=== PATIENT | female | born 1930 | race Caucasian/White ===

== ENCOUNTER 2017-12-08 11:52 | Inpatient (IN) | payer MEDICARE, BC ==
[2017-12-08] MEDS ORDERED: NS 0.9% 1000 ML* 1,000 ML IV ONE ×2 (12:22→15:32)
[2017-12-08 12:47] LABS: Hematocrit 38 % (35-47); Hemoglobin 12.6 g/dl (12.0-16.0); Mean Corpuscular HGB Conc 33 g/dl (31-36); Mean Corpuscular Hemoglobin 29 pg (27-31); Mean Corpuscular Volume 88 fL (80-97); Mean Platelet Volume 9.2 um3 (7.4-10.4); Platelet Count 225 10^3/ul (150-450); Red Blood Count 4.29 10^6/ul (4.0-5.4); Red Cell Distribution Width 14 % (10.5-15); White Blood Count 21.7 10^3/ul (3.5-10.8)
[2017-12-08 13:08] LABS: INR 1.13 (0.77-1.02)
[2017-12-08 13:26] LABS: ABS Basophils 0.1 10^3/ul (0-0.2); ABS Eosinophils 0 10^3/ul (0-0.6); ABS Monocytes 1.2 10^3/ul (0-0.8); ABS Neutrophils 19.3 10^3/ul (1.5-7.7); ABS Nucleated RBC 0 10^3/ul; Eosinophil % 0 % (0-6); Lymphocyte % 4.8 % (25-47); Nucleated Red Blood Cells % 0
--- NOTE | 2017-12-08 13:32 | RAD ---
Indication: Confusion. Single frontal view of the chest performed at 1314 hours was reviewed. No prior study is available for comparison. No mediastinal shift is noted. Heart is of normal size and configuration. Lung jon appear clear. IMPRESSION: NO ACTIVE CARDIOPULMONARY DISEASE IS NOTED.
--- NOTE | 2017-12-08 13:33 | RAD ---
Indication: Altered mental status. 2 views of the thoracic spine demonstrates osteopenia. There appears to be compression of approximately L1 vertebra. Osteopenia is noted. IMPRESSION: There appears to be, compression fracture of the L1 vertebra age of which is undetermined. Multilevel degenerative disc disease with diffuse osteopenia.
[2017-12-08] MEDS: Aspirin 81 mg CHEW TAB* 81 MG TAB.CHEW PO ONE ×2 (13:48→15:20)
[2017-12-08] MEDS ORDERED: Aspirin SUPP* 300 MG PR ONE (13:48)
[2017-12-08 14:02] LABS: Urine Appearance Turbid; Urine Blood 2+ (Negative); Urine Color Amber; Urine Ketones 1+ (Negative); Urine Protein 2+(100 mg/dL) (Negative); Urine Specific Gravity 1.015 (1.010-1.030); Urine Urobilinogen Negative (Negative)
--- NOTE | 2017-12-08 14:07 | RAD ---
INDICATION: Altered mental status COMPARISON: None TECHNIQUE: Noncontrast axial source images were acquired from the skull base to the vertex. FINDINGS: Ventricles/sulci: There is age-related cortical atrophy with compensatory dilatation of the CSF spaces. Brain parenchyma: There is mild decreased attenuation in the periventricular white matter consistent with mild chronic microvascular ischemic change. There are no additional significant focal probable findings. Incidental note is made of bilateral basal ganglia calcifications. Intracranial hemorrhage:None. Extra-axial spaces: There are no abnormal extra axial fluid collections or evidence of extra-axial mass. Calvarium: There is no calvarial fracture or other calvarial abnormality. Scalp: There is no evidence of scalp or extracalvarial soft tissue abnormality. Paranasal sinuses/mastoid: There is mild focal mucosal thickening involving the right maxillary antrum The paranasal sinuses and mastoid air cells are otherwise clear. Other: None. IMPRESSION: No acute intracranial findings
--- NOTE | 2017-12-08 14:13 | RAD ---
INDICATION: Altered mental status. Fall. COMPARISON: None TECHNIQUE: Noncontrast axial source images was performed from the skull base to the thoracic inlet. Coronal and and sagittal reformatted images were generated. FINDINGS: Vertebrae: There is no fracture or acute focal bony lesion. There are advanced osteoarthritic findings with anterior vertebral spurring, uncinate process hypertrophy, and facet arthropathy from C3 through C7. There is moderate, multilevel bilateral foraminal encroachment. There is posterior spondylitic ridge formation leading to a decrease in the AP diameter canal most severe at C5-C6. Alignment: The craniocervical junction appears normal. The cervical vertebrae are normally aligned. Central Canal: Multilevel foraminal stenosis. Decrease in the AP diameter canal C5-C6. MR imaging is a more sensitive method to evaluate the canal and foramina. Intervertebral disc spaces: Advanced multilevel degenerative narrowing. Brain: The visualized brain appears unremarkable. Soft tissues: The visualized soft tissue elements of the neck are remarkable for an enlarged right thyroid lobe with several low-density foci. The prevertebral soft tissues appear normal. The lung apices are clear. IMPRESSION: ADVANCED OSTEOARTHRITIC FINDINGS DESCRIBED. NO ACUTE CERVICAL SPINE. RIGHT THYROID NODULES. FINDINGS.
[2017-12-08] MEDS ORDERED: cefTRIAXone(*) 1 GM in NS 0.9% 50 ML* 50 ML IVPB ONE (14:56)
[2017-12-08] MEDS ORDERED: Diltiazem CD CAP* 180 MG PO ONE (15:33)
[2017-12-08] MEDS ORDERED: Metoprolol Tartrate IV* 1 MG/ML 5 ML VIAL IV PRN (15:34)
[2017-12-08] MEDS ORDERED: Acetaminophen TAB* 325 MG PO PRN (15:35)
[2017-12-08] MEDS ORDERED: Hydrocortisone 1% CREAM* 30 GM TUBE TOPICAL PRN (15:35)
[2017-12-08] MEDS ORDERED: Diltiazem IV* 5 MG/ML 5 ML VIAL (for loading dose/IV Push) (25 MG) IV SLOW PU ONE (15:45)
[2017-12-08] MEDS ORDERED: Dextrose 50% Syringe 50 ML* 25 GM/50 ML SYRINGE IV PUSH PRN (16:33)
[2017-12-08] MEDS: Pantoprazole IV* 40 MG IV SCH (17:32)
[2017-12-08] MEDS: NS 0.9% 1000 ML* 1,000 ML IV SCH (17:51)
[2017-12-08] MEDS: Insulin LISPRO* 1 UNITS UNIT SUBCUT SCH (20:26)
[2017-12-08] MEDS: Fluticasone NASAL SPRAY 50MCG* 16 gm SPRAY BTL BOTH NARES SCH (20:27)
--- NOTE | 2017-12-08 23:23 | HP ---
CC: Dr. Saavedra * HISTORY AND PHYSICAL: DATE OF ADMISSION: 12/08/17 PRIMARY CARE PROVIDER: Dr. Saavedra. CHIEF COMPLAINT: Not talking, altered mental status, found down. HISTORY OF PRESENT ILLNESS: Bess Briceno is an 87-year-old female who is wheelchair bound lady with a history of mild dementia who lives in independent apartment. She has Meals on Wheels on a daily basis and last she was seen well when she went out with her aide 2 days ago. At baseline, she is wheelchair bound, but she is able to stand up and transfer by herself. She arrived to [facility] in May 2017 to be closer with her daughter. Over the period of 2016, she fractured her hip, was postoperatively delirious and encephalopathic. She was transferred to short-term rehabilitation place and from there to assisted living. Gradually, her mentation improved to the point that her daughter decided to [facility] to be closer to her place in [place]. The patient moved to [place] in May 2017 and since then she has been in her wheelchair in her apartment. Her aide takes her out a couple times a week. She also receives Meals on Wheels. Today in the morning, she was found by her aide in her apartment on the floor, covered in dry stool. There were knitting supplies all over the floor and also clothing all over the floor. The patient was covered in bruises and nonverbal, but alert. The patient's daughter stated that the apartment looked like "a raccoon got into it." The patient became verbal after rehydration in the ED, but she does not make sense. She does not appear to understand commands. She can swallow water, but she has difficulty to do so. She appears not to know what to do with the cup. Her speech is clear. Her lab work shows rhabdomyolysis, severe sepsis likely due to UTI, elevated troponin. She also is in atrial fibrillation with rapid ventricular response. PAST MEDICAL HISTORY: Obtained from the daughter includes: 1. History of appendectomy in remote past. 2. Hypertension. 3. Status post right hip surgery in 2017. Postoperatively, the patient had been wheelchair bound. Postoperatively, she also developed encephalopathy. 4. History of mild dementia. 5. Diabetes. 6. History of atrial fibrillation, on anticoagulation ever since her hip surgery. 7. History of vein stripping. 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 9. 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 MEDICATIONS: The patient's medications that I believe she likely did not take for the past 2 days include: 1. Diltiazem CD 180 mg daily. 2. Flonase nasal spray, 1 spray both nostrils b.i.d. 3. Aspirin 325 mg daily. 4. Acetaminophen on a p.r.n. basis. 5. Preparation H on a p.r.n. basis. 6. Pravachol 20 mg every other day. 7. Insulin Lantus 27 units daily. 8. Lisinopril 20 mg daily. 9. Metformin 1000 mg b.i.d. ALLERGIES: HEPARIN causes HIT. FAMILY HISTORY: Positive for diabetes in mother as well as pancreatic cancer in mother who in her 80s. The patient's father had a history of liver malignancy. SOCIAL HISTORY: The patient is currently single. She lives independently as mentioned above. Her daughter is her healthcare proxy, her name is Lara Jack. The patient has a history of smoking over 30 years ago. There is no alcohol or drug use as per the patient's daughter. REVIEW OF SYSTEMS: Unobtainable from the patient. PHYSICAL EXAMINATION GENERAL: The patient is an 87-year-old female who is lying in bed. The patient appears in no acute distress. She is alert. She is very disoriented. Her speech is clear, but does not make any sense. She is not able to follow commands even when shown. VITAL SIGNS: Blood pressure 110/87, heart rate of 141 and irregular, respiratory rate 22, oxygen saturation 97% on room air, temperature 99.0. HEENT: Head: Atraumatic, normocephalic. Eyes: Pupils are equal and reactive to light and accommodation. Oropharynx clear. Very dry mucous membranes. NECK: Supple. No JVD. No bruits bilaterally RESPIRATORY: Clear to auscultation bilaterally. CARDIOVASCULAR: Irregularly irregular rhythm. No murmur. ABDOMEN: Soft, nontender. Bowel sounds are present in all 4 quadrants. EXTREMITIES: There is no edema. Pulses +2 bilaterally. No clubbing or cyanosis. NEURO EVALUATION: Speech is clear, but the patient's speaks "word salad." She is not able to follow commands even when shown. She appears to have equal strength in bilateral upper and lower extremities. There is no evidence of cranial nerve palsy. PSYCHIATRIC: On psychiatric evaluation, the patient speaks word salad. She is very disoriented. SKIN: On evaluation of the skin, the patient has multiple bruises and scratches in bilateral lower extremities. She has a rather larger contusion like appearing bruise on her right scapular region. She has stage II decubitus overlying her most of sacral area of approximately 20 x 20 cm. The area is nonblanchable. The center of the area approximately 2 x 2 cm is stage III decubitus. There is no evidence of infection. The patient has a Cummings in place with purulent urine draining. On evaluation of the patient's extremities, the patient has 1st and 2nd toe status post amputation with wound healed well. She has venous stasis discoloration to bilateral lower extremities and flaky dry skin due to venous stasis dermatitis. LABORATORY DATA: Showed white blood cell count of 21.7, hemoglobin of 12.6, hematocrit of 38, and platelets 225. INR 1.13. VBG shows pH of 7.35, pCO2 of 45, pO2 of 14, bicarb of 22. Sodium of 139, potassium of 4.1, chloride 106, carbon dioxide 22, BUN 27, creatinine 0.8. Liver function tests were unremarkable apart from total CPK level of 1424. Ammonia was 48. The patient's troponin was 0.39. Lactic acid 1.5. Urine positive for ketones, blood, esterase, negative for nitrites, absent bacteria, +3 white blood cells. IMAGING: Thoracic spine x-ray showed, "there appears to be compression fracture of the L1 vertebra, age undetermined. Multilevel degenerative disk disease with diffuse osteopenia." Cervical spine CT, impression: "Advanced osteoarthritic findings as described. No acute cervical spine. Right thyroid nodules." Brain CT, impression: "No acute intracranial findings." Portable chest x-ray, impression: "No acute cardiopulmonary disease is noted." The patient's EKG showed atrial fibrillation with a heart rate of 139 beats per minute with nonspecific ST changes in lateral leads. ASSESSMENT AND PLAN: 1. The patient's altered mental status is likely multifactorial. A differential can include cardioembolic stroke. The patient is in atrial fibrillation chronically and she had not been anticoagulated. The patient's daughter stated that the anticoagulation was stopped when the patient was started to take more Coumadin than prescribed prior to her hip surgery a year ago. Another diagnosis of differential is likely encephalopathy due to severe sepsis. The patient appears to be septic due to urinary tract infection. At this point, the patient is going to be placed on neuro checks and treated further. 2. In regards to the patient's severe sepsis due to urinary tract infection, ceftriaxone is going to be started. We will follow urine cultures. The patient was started with fluid boluses and will be continued on intravenous fluids. 3. For the patient's atrial fibrillation with rapid ventricular response, she is already slowly responding to fluids. We will also give the patient p.o. dose of Cardizem CD that she had been taking at home and the patient was also bolused with a dose of Cardizem in the ED. In addition to that, she is going to be placed on metoprolol on a p.r.n. basis IV. At this point, I do not believe that she needs to be placed on Cardizem drip. 4. The patient's rhabdomyolysis is rather severe. She is going to be continued on intravenous fluids. CPKs are going to be checked in the morning. 5. Her troponin elevation is likely due to demand ischemia. Nevertheless, we will follow up troponins. An echocardiogram may need to be obtained in a couple of days when it is available on Tuesday. 6. The patient has a history of heparin-induced thrombocytopenia and she is going to be placed on fondaparinux for her DVT prophylaxis. 7. The patient's code status is DNR and her daughter, Lara signed appropriate MOLST paperwork. TIME SPENT: Approximately 75 minutes was spent on admission of this patient, more than half of the time was spent [id number] with the patient and the patient's daughter doing the interview, physical exam. [id number]/[facility] #: [id number] ASHA
[2017-12-09] MEDS: NS 0.9% 1000 ML* 1,000 ML IV SCH (01:31)
[2017-12-09 05:40] LABS: ABS Basophils 0 10^3/ul (0-0.2); ABS Eosinophils 0 10^3/ul (0-0.6); ABS Lymphocytes 1.2 10^3/ul (1.0-4.8); ABS Monocytes 0.7 10^3/ul (0-0.8); ABS Neutrophils 16.1 10^3/ul (1.5-7.7); ABS Nucleated RBC 0 10^3/ul; Eosinophil % 0 % (0-6); Hematocrit 34 % (35-47); Hemoglobin 11.2 g/dl (12.0-16.0); Lymphocyte % 6.9 % (25-47); Mean Corpuscular HGB Conc 33 g/dl (31-36); Mean Corpuscular Hemoglobin 29 pg (27-31); Mean Corpuscular Volume 88 fL (80-97); Mean Platelet Volume 9.3 um3 (7.4-10.4); Nucleated Red Blood Cells % 0; Platelet Count 189 10^3/ul (150-450); Red Blood Count 3.85 10^6/ul (4.0-5.4); Red Cell Distribution Width 14 % (10.5-15); White Blood Count 18.1 10^3/ul (3.5-10.8)
[2017-12-09 05:55] LABS: EGFR Non-African American 100.6 (>60)
--- NOTE | 2017-12-09 07:40 | ED ---
Leanna Goodwin Gabriel, scribed for Niles Madrigal MD on 12/08/17 at 1221 . Altered Mental Status - HPI Summary HPI Summary: This patient is a 87 year old F BIBA to [facility] accompanied by her daughter after she was found on the floor in her apartment in a state of confusion. Pt lives alone and does not usually leave her apartment. No hx dementia or confusion. Pt is NIDDM. Has had multiple UTIs. Patient denies vomiting. The patient was found making small balls with her feces at her apartment. LEVEL 5 CAVEAT: HPI limited due to the patients confusion - History Of Current Complaint Chief Complaint: EDAltMentalStatus Stated Complaint: FALL/ALTERED MENTAL Time Seen by Provider: 12/08/17 12:06 Hx Obtained From: Patient, Family/Vegetable Inspector Onset/Duration: Still Present Timing: Constant Severity Initially: Severe Severity Currently: Severe Character: Confusion Associated Signs And Symptoms: Positive: Negative - vomiting - Allergies/Home Medications Allergies/Adverse Reactions: Allergies Allergy/AdvReac Type Severity Reaction Status Date / Time heparin Allergy Severe See Comment Verified 12/08/17 13:47 Home Medications: Home Medications Acetaminophen TAB* [Tylenol TAB*] 650 mg PO Q4H PRN 12/08/17 [History Confirmed 12/08/17] Aspirin TAB* [Aspirin 325 MG TAB*] 325 mg PO DAILY 12/08/17 [History Confirmed 12/08/17] Fluticasone NASAL SPRAY 50MCG* [Flonase NASAL SPRAY 50MCG*] 1 spray BOTH NARES BID 12/08/17 [History Confirmed 12/08/17] Hydrocortisone [Preparation H Hydrocortis] 1 % TOPICAL DAILY PRN 12/08/17 [ History Confirmed 12/08/17] Insulin GLARGINE(*) [Lantus(*)] 27 units SUBCUT DAILY 12/08/17 [History Confirmed 12/08/17] Lisinopril TAB* [Prinivil TAB*] 20 mg PO DAILY 12/08/17 [History Confirmed 12/08] Pravastatin (NF) [Pravachol (NF)] 20 mg PO EVERY OTHER DAY 12/08/17 [History Confirmed 12/08/17] dilTIAZem HCl [Diltiazem 24Hr ER] 180 mg PO DAILY 12/08/17 [History Confirmed ] metFORMIN* [Glucophage 500 MG TAB *] 1,000 mg PO BID 12/08/17 [History Confirmed 12/08/17] PMH/Surg Hx/FS Hx/Imm Hx Endocrine/Hematology History: Reports: Hx Diabetes Cardiovascular History: Denies: Hx Auto Implanted Cardiovert Defib Respiratory History: Denies: Hx Chronic Obstructive Pulmonary Disease (COPD) Infectious Disease History: Unable to Obtain/Confirm Infectious Disease History: Denies: Traveled Outside the [place] in Last 30 Days - Social History Lives: Alone - Additional Comments History Additional Comments: LEVEL 5 CAVEAT: history limited due to the patients confusion Review of Systems - ROS Summary Review of Systems Summary: LEVEL 5 CAVEAT: ROS limited due to the patients confusion Psychological: Other - AMS All Other Systems Reviewed And Are Negative: No Physical Exam - Summary Physical Exam Summary: Constitutional: Alert. (-) Distressed, moderately ill appearing Skin: sacral decubitus ulcer, abrasions of bilateral scapula HENT: extremely dry mucous membranes Eyes: Conjunctiva normal Neck: Musculoskeletal ROM normal neck. (-) JVD, (-) Stridor, (-) Tracheal deviation Cardio: Rhythm regular, rate normal, Heart sounds normal; Intact distal pulses; The pedal pulses are 2+ and symmetric. Radial pulses are 2+ and symmetric. (-) Murmur Pulmonary/Chest wall: Effort normal. (-) Respiratory distress, (-) Wheezes, (-) Rales Abd: Soft, (-) Tenderness, (-) Distension, (-) Guarding, (-) Rebound Musculoskeletal: (-) Edema Lymph: (-) Cervical adenopathy Neuro: Alert, Psych: confused Triage Information Reviewed: Yes Vital Signs On Initial Exam: Initial Vitals Temp Pulse Resp BP Pulse Ox 99.4 F 147 18 150/94 96 12/08/17 11:53 12/08/17 11:53 12/08/17 11:53 12/08/17 11:53 12/08/17 11:53 Vital Signs Reviewed: Yes Diagnostics - Vital Signs Vital Signs Temp Pulse Resp BP Pulse Ox 12/08/17 11:53 99.4 F 147 18 150/94 96 - Laboratory Result Diagrams: 12/08/17 12:33 12/08/17 12:35 Lab Statement: Any lab studies that have been ordered have been reviewed, and results considered in the medical decision making process. - EKG 1256 Cardiac Rate: Tachycardia EKG Rhythm: Atrial Fibrillation - at 139 EKG Interpretation: afib with RVR, no STEMI - Additional Comments Diagnostic Additional Comments: CT brain reveals, per radiologist, No acute intracranial findings ED physician has reviewed this radiology report. CT C-spine reveals, per radiologist, ADVANCED OSTEOARTHRITIC FINDINGS DESCRIBED. NO ACUTE CERVICAL SPINE. RIGHT THYROID NODULES. FINDINGS. ED physician has reviewed this radiology report. CXR reveals, per radiologist, NO ACTIVE CARDIOPULMONARY DISEASE IS NOTED. ED physician has reviewed this radiology report. T- spine XR reveals, per radiologist, There appears to be, compression fracture of the L1 vertebra age of which is undetermined. Multilevel degenerative disc disease with diffuse osteopenia. ED physician has reviewed this radiology report. Re-Evaluation - Re-Evaluation First Eval Re-Evaluation Time: 13:08 Comment: The pts hr is 146 and irregular. Second Eval Re-Evaluation Time: 15:32 Change: Unchanged Comment: Pt's hr is 140 with afib despite fluids Altered Mental Statu Course/Dx - Course Assessment/Plan: This patient is a 87 year old F BIBA to [facility] accompanied by her daughter after she was found on the floor in her apartment in a state of confusion. Pt lives alone and does not usually leave her apartment. No hx dementia or confusion. Pt is NIDDM. Has had multiple UTIs. Patient denies vomiting. The patient was found making small balls with her feces at her apartment. LEVEL 5 CAVEAT: exam limited due to the patients confusion. CT brain reveals, per radiologist, No acute intracranial findings. ED physician has reviewed this radiology report. CT C-spine reveals, per radiologist, ADVANCED OSTEOARTHRITIC FINDINGS DESCRIBED. NO ACUTE CERVICAL SPINE. RIGHT. THYROID NODULES. FINDINGS. ED physician has reviewed this radiology report. CXR reveals, per radiologist, NO ACTIVE CARDIOPULMONARY DISEASE IS NOTED. ED physician has reviewed this radiology report. T- spine XR reveals, per radiologist, There appears to be, compression fracture of the L1 vertebra age of which is. undetermined. Multilevel degenerative disc disease with diffuse osteopenia. ED physician has reviewed this radiology report. Test results with no significant abnormalities except forWBC of 21.7, glucose of 296, trop of .39, creatine kinase of 1424. UA was positive for UTI. The patient will be admitted to Dr. Augustine - Diagnoses Provider Diagnoses: Sepsis, UTI (urinary tract infection), Delirium, Atrial fibrillation with RVR - Provider Notifications Discussed Care Of Patient With: Fabio Augustine Time Discussed With Above Provider: 15:30 Instructed by Provider To: Admit As Inpatient - Critical Care Time Critical Care Time: 30-74 min Discharge - Sign-Out/Discharge Documenting (check all that apply): Discharge/Admit/Transfer - Discharge Plan Condition: Fair Disposition: ADMITTED TO [facility] The documentation as recorded by the Leanna beckman Gabriel accurately reflects the service I personally performed and the decisions made by me, Niles Madrigal MD.
[2017-12-09] MEDS: Insulin LISPRO* 1 UNITS UNIT SUBCUT SCH ×4 (10:00→21:10)
--- NOTE | 2017-12-09 10:15 | PN ---
Subjective Date of Service: 12/09/17 Interval History: pt continues to be very confused, alert, but appears to have sensory aphasia. Unable to follow commands at all even when shown what to do. Objective Active Medications: Acetaminophen (Tylenol Tab*) 650 mg PO Q4H PRN PRN Reason: PAIN Aspirin (Aspirin Tab*) 325 mg PO DAILY [facility] Dextrose (D50w Syringe 50 Ml*) 12.5 gm IV PUSH .FOR FS < 60 - SS PRN PRN Reason: FS < 60 Diltiazem HCl (Cardizem Cd Cap*) 180 mg PO DAILY [facility] Fluticasone Propionate (Flonase Nasal [place] 50mcg*) 1 spray BOTH NARES BID [facility] Last Admin: 12/08/17 20:27 Dose: 1 spray Fondaparinux (Arixtra*) 2.5 mg SUBCUT DAILY [facility] Hydrocortisone (Hytone Cream 1%*) 1 applic TOPICAL DAILY PRN PRN Reason: PAIN Ceftriaxone Sodium 1 gm/ (Sodium Chloride) 50 mls @ 200 mls/hr IVPB Q24H [facility] Lactated Ringer's (Lactated Ringers 1000 Ml Bag*) 1,000 mls @ 100 mls/hr IV ONCE ONE Stop: 12/09/17 17:55 Insulin Glargine (Lantus(*)) 27 units SUBCUT DAILY [facility] Insulin Human Lispro (Humalog*) 0 units SUBCUT ACHS THIERNO PRN Reason: Protocol Last Admin: 12/09/17 10:00 Dose: Not Given Metoprolol Tartrate (Lopressor Iv*) 5 mg IV Q6H PRN PRN Reason: BLOOD PRESSURE Vital Signs - 8 hr 12/09/17 12/09/17 12/09/17 04:15 07:33 08:00 Temperature 99.6 F 98.5 F Pulse Rate 147 138 Respiratory 16 16 16 Rate Blood Pressure 116/56 136/67 (mmHg) O2 Sat by Pulse 96 98 Oximetry Oxygen Devices in Use Now: None Appearance: 87 yo F in nAD, disoriented, speaks word salad Eyes: No Scleral Icterus, PERRLA Ears/Nose/Mouth/Throat: NL Teeth, Lips, Gums, Mucous Membranes Moist Neck: NL Appearance and Movements; NL JVP, Trachea Midline Respiratory: Symmetrical Chest Expansion and Respiratory Effort, - - crackles at RLL Cardiovascular: No Edema, - - irregular, tachy 3/6 BERT Abdominal: NL Sounds; No Tenderness; No Distention Lymphatic: No Cervical Adenopathy Extremities: No Edema, No Clubbing, Cyanosis, - - s/p L 1st and 2nd toe amputation Skin: - - sacral decub stage 2 at 20 cm in diam with central wound of 2-3 cm in diam -stage 3. Venous stasis dermatitis b/l distal LE's, excoriations throughout b/l upper and lower extremities, contusion on r scapula Neurological: NL Muscle Strength and Tone, - - sensory aphasia noted, speech clear Result Diagrams: 12/09/17 05:15 12/09/17 05:15 Assess/Plan/Problems-Billing Assessment: 87 yo f with h/o DM2, a. fib (not on anticoagulation due to dementia and risk of pt taking wrong dose of med-as per pt's daughter), s/p R hip fx in 2017(since then WC bound, but able to transfer), dementia and delirium post op in 2017 was brought in found on the floor of her apartment covered in stool ,and bruises. Last time seen at baseline was 2 days prior. - Patient Problems (1) Encephalopathy acute Comment: Multifactiorial: related to severe sepsis and possible CVA Improving. today pt is exhibiting sensory aphasia (2) Aphasia Comment: Pt does not appear to understand anything. suspect pt had cardioembolic CVA will ask Dr. Luther to see. Unfortunately due to the disorientation, pt would not be cooperative with MRI cont ASA PT/OT/speech therapy ongoing Neurochecks ordered (3) Rhabdomyolysis Comment: post fall, CPK improving, cont IVF (4) Atrial fibrillation with rapid ventricular response Comment: Known a. fib. Cont Cardizem CD and lopressor IV prn Daughter agrees to anticoagulation , since likely pt will require STR at d/c. Will await neuro evaluation and recommendations when to start anticoagulation (5) Troponin I above reference range Comment: suspect due to demand ischemia and rhabdo echo ordered (6) Severe sepsis Comment: due to UTI Blood and urine cx pending cont Ceftriaxone (7) HIT (heparin-induced thrombocytopenia) Comment: h/o in the past (8) Decubitus skin ulcer Comment: on sacrum, stage 2 and 3. wound care ordered. Air matress ordered (9) DM2 (diabetes mellitus, type 2) Comment: cont home Lantus and ISS (10) DVT prophylaxis Comment: Arixtra due to h/o HIT (11) DNR (do not resuscitate) Comment: DNR, MOLST signed Status and Disposition: Inpatient
[2017-12-09] MEDS: Fondaparinux* 2.5 MG/0.5 ML SYRINGE SUBCUT SCH (10:33)
[2017-12-09] MEDS: Diltiazem CD CAP* 180 MG PO SCH (10:35)
[2017-12-09] MEDS: Aspirin TAB* 325 MG PO SCH (10:35)
[2017-12-09] MEDS: Fluticasone NASAL SPRAY 50MCG* 16 gm SPRAY BTL BOTH NARES SCH ×2 (10:39→21:10)
[2017-12-09] MEDS: Pantoprazole IV* 40 MG IV SCH (10:48)
[2017-12-09] MEDS: Insulin GLARGINE(*) 1 UNITS UNIT SUBCUT SCH (10:59)
--- NOTE | 2017-12-09 15:02 | ECHO ---
Patient: CARLOS MARTINEZ [facility] Rec#: [id number] : 1930 Date: 12/09/2017 Age: 87y Height: 157.48 cm / 62.0 in Weight: 68.04 kg / 150.0 lbs Sex: F BSA: 1.69 Room#: [facility] Admit Date#: 12/08/2017 Type: Inpatient Referring: Joanie Machado MD Reading: Buddy Grullon MD Radio Disc Jockey: Gissell Hernandez RDCS CC: Juan Carlos Saavedra MD Transthoracic Echocardiogram Indication: A-Fib with RVR BP: 136/67 HR: 105 Rhythm: A-Fib Findings History: DM, HTN, a-fib, mild dementia, s/p vein stripping, former smoker, s/p right hip surgery in 2017. Technical Comments: The study quality is fair. Completed at 1455. Left Ventricle: The left ventricular chamber size is normal. Mild concentric left ventricular hypertrophy is observed. Mild global hypokinesis of the left ventricle is observed. There is mildly decreased left ventricular systolic function. The estimated ejection fraction is 45-50%. Pt is in a fib and difficult to make accurate overall LV EF evaluation. The assessment of diastolic function is non-diagnostic. The patient was unable to perform a Valsalva maneuver. Left Atrium: The left atrium is severely dilated. Right Ventricle: Moderator Band present. The right ventricle is mild to moderately dilated. The right ventricular global systolic function is mildly reduced. Right Atrium: The right atrial cavity size is severely dilated. A prominent eustachian valve is noted in the right atrium. A prominent chiari network is noted in the right atrium. Aortic Valve: The aortic valve is trileaflet. Mild aortic leaflet calcification is visualized. Systolic excursion of the aortic valve cusps is reduced. There is no evidence of aortic regurgitation. There is moderate aortic stenosis. The mean gradient of the aortic valve is 6.59 mmHg. The peak instantaneous gradient of the aortic valve is 12.29 mmHg. The aortic valve area, by peak velocities, is calculated at 1.1 cm2. The aortic valve area, by VTI's, is calculated at 1.1 cm2. Mitral Valve: There is mitral annular calcification. The mitral valve leaflets are moderately thickened. There is moderate mitral regurgitation. There is no evidence of mitral stenosis. Tricuspid Valve: The tricuspid valve leaflets are mildly thickened. There is mild to moderate tricuspid regurgitation. The right ventricular systolic pressure is estimated at 39 mmHg. There is evidence of mild pulmonary hypertension. There is no tricuspid stenosis. Pulmonic Valve: The pulmonic valve appears normal. There is mild pulmonic regurgitation. There is no pulmonic stenosis. Pericardium: There is no significant pericardial effusion. Aorta: There is no dilatation of the ascending aorta. The aortic arch is not well visualized. The aortic root is normal in size. Pulmonary Artery: The main pulmonary artery appears normal. Venous: The inferior vena cava is dilated. There is an approximate 50% respiratory change in the inferior vena cava dimension. Summary: There was not any prior study for comparison. Conclusions The left ventricular chamber size is normal. Mild concentric left ventricular hypertrophy is observed. The estimated ejection fraction is 45-50%. Pt is in a fib and difficult to make accurate overall LV EF evaluation. The left atrium is severely dilated. There is moderate aortic stenosis. There is moderate mitral regurgitation. There is mild to moderate tricuspid regurgitation. There is mild pulmonic regurgitation. Measurements Name Value Normal Range RVIDd (AP) 2D 3.3 cm (0.9 - 2.6) RVDdMajor (2D) 4.9 cm (2.2 - 4.4) RAd ISD 4CH 6.5 cm (3.4 - 4.9) RA (A4C)W 4.5 cm (2.9 - 4.6) IVSd (2D) 1.2 cm (0.6 - 1) LVPWd (2D) 1.2 cm (0.6 - 1) LVIDd (2D) 3.7 cm (3.6 - 5.4) LVIDs (2D) 3 cm - LV FS (2D) 19 % (25 - 45) Aortic Annulus 2.1 cm (1.4 - 2.6) Ao root diameter (2D) 2.9 cm (2.1 - 3.5) Ascending Ao 3.1 cm (2.1 - 3.4) LA dimension (AP) 2D 4.3 cm (2.3 - 3.8) LAd ISD 4CH 6.3 cm (2.9 - 5.3) LA ISD 4CH W 5.3 cm (2.5 - 4.5) Name Value Normal Range LA ESV SP 4CH (A/L) 109 ml - LA ESV SP 2CH (A/L) 90 ml - LA ESV BP (A/L) 102 ml - LA ESV BP (A/L) index 60 ml/m2 - LA ESV SP 4CH (MOD) 101 ml - LA ESV SP 2CH (MOD) 85 ml - Name Value Normal Range MV E-wave Vmax 1.19 m/sec - MV deceleration time 198.4 msec - LV septal e' Vmax 0.06 m/sec - LV lateral e' Vmax 0.06 m/sec - LV E:e' septal ratio 19.83 ratio - LV E:e' lateral ratio 19.83 ratio - Name Value Normal Range AV Vmax 1.74 m/sec - AV VTI 31.46 cm - AV peak gradient 12.29 mmHg - AV mean gradient 6.59 mmHg - LVOT diameter 2 cm - LVOT Vmax 0.63 m/sec - LVOT VTI 11.26 cm - LVOT peak gradient 1.59 mmHg - LVOT mean gradient 0.84 mmHg - DOI (VTI) 0.36 ratio - BRIAN (continuity Vmax) 1.1 cm2 - BRIAN (continuity VTI) 1.1 cm2 - MAN Vmax 0.48 m/sec - Name Value Normal Range MR Vmax 5.26 m/sec - MR VTI 130.3 cm - MR flow (PISA) 65.7 ml/sec - MR ERO 0.12 cm2 - MR PISA radius 0.4 cm - MR alias Vmax 57 cm/sec - Name Value Normal Range TR Vmax 2.8 m/sec - TR peak gradient 31 mmHg - RAP 8 mmHg - RVSP 39 mmHg - IVC diameter 2.3 cm - Name Value Normal Range PV Vmax 0.72 m/sec - PV peak gradient 2.13 mmHg -
[2017-12-09] MEDS: cefTRIAXone(*) 1 GM in NS 0.9% 50 ML* 50 ML IVPB SCH (15:30)
--- NOTE | 2017-12-09 21:10 | CONS ---
CC: Dr. Saavedra * NEUROLOGY CONSULTATION: DATE OF CONSULT: 12/09/17 LOCATION: She is an inpatient in room 449. REFERRING PROVIDER: Dr. Machado. CHIEF COMPLAINT: Confusion, found down. HISTORY OF PRESENT ILLNESS: Bess Briceno is an 87-year-old woman who was found by, I believe, her aide on the floor of her senior apartment on the day of admission. She had been seen 2 days prior to that. There was feces on her and the apartment was apparently in disarray. She is in a wheelchair because of her fractured hip. She was brought into the emergency room where she was uroseptic and dehydrated. She was unresponsive initially. She was in atrial fibrillation with a rapid response which she is known to have chronically. She was hydrated and starting to become more responsive. However, after recovery, she was speaking nonsensically and seemed very confused. I was asked to see her. PAST MEDICAL HISTORY: Apparently notable for dementia, but she is able to live in a senior apartment. She fell and fractured her hip last fall and had hip surgery. She was delirious postoperatively. She has chronic atrial fibrillation , but was not on anticoagulation apparently due to risk of falling. She has a history of heparin-induced thrombocytopenia, left toe gangrene requiring amputation, diabetes. MEDICATIONS: At home, consist of: 1. Diltiazem CD 180 mg p.o. q. day. 2. Aspirin 325 mg p.o. q. day. 3. Pravachol 20 mg p.o. q. day. 4. Lisinopril 20 mg p.o. q. day. 5. Metformin 1000 mg p.o. b.i.d. 6. Insulin. Current medications include: 1. Ceftriaxone 1 g IV q.24 hours and her inpatient medicines. 2. She is also getting Arixtra 2.5 mg subcu q. day. 3. She is on sliding scale insulin. ALLERGIES: She is allergic to HEPARIN because of heparin-induced thrombocytopenia. SOCIAL HISTORY: According to hospital record, she is an ex-smoker from decades ago, no alcohol use. REVIEW OF SYSTEMS: From the patient is pretty nonproductive which was explainable on her exam. I spoke with her daughter. She is apparently forgetful, but this current mental state is entirely different. PHYSICAL EXAM: She is reasonably well hydrated. Temperature 98.5 orally, blood pressure 136/67, heart rate was measured at 138 earlier but on my exam is closer to 80 to 90. Respiratory rate is 16 and oxygen saturation is 98% on room air. She has multiple ecchymoses on her limbs. Head is atraumatic. Heart is in irregularly irregular rhythm. I do not hear murmurs. Carotid pulses are present. There are no cervical bruits. Oral mucosa is moist and I do not see any oral trauma. Neurologically, pupils react equally from 3 to 2 mm. Eye movements are full. I cannot sort out her visual jon because of the language barrier. She does respond to threat bilaterally. Facial musculature is notable for mild flattening of the right nasolabial fold. Facial sensation to nasal tickle seems symmetric. Motor exam reveals some paratonia but good strength in the arms. She has good strength with ankle dorsiflexes, but I could not get her to raise her legs and I did not want to interfere with her hip injury. Reflexes are trace in the arms and knees, absent at the ankles. Her left plantar response is flexor and her right great toe is missing. She is awake and alert. She largely speaks in a word salad with non-words as well as exr-ph-dvyasod words. She does say a few sentences and says that "something has happened" and it has happened "suddenly." She talks about a man with possible mental illness. She has great difficulty following commands other than by pantomime. DIAGNOSTIC STUDIES/LAB DATA: Includes a CT scan of the brain from 12/08/17. Reveals atrophy, periventricular hypodensities, and bilateral basal ganglia calcifications. Other laboratory data notable for admitting urinalysis with 2+ protein, turbidity, pH 5.0, 1+ ketones, +2 blood, 3+ white blood cells and red blood cells, 2+ leukocyte esterase, yeasts are present, 3+ glucose. Chemistry profile notable for persistently elevated troponins which have come down somewhat; glucose when she came in was 279, was 307 earlier this morning. Creatine kinase was 1424 yesterday, down to 598 today. BUN was elevated yesterday at 27, down to 22 today. Lactic acid was normal yesterday. Ammonia level normal at 48 and liver enzymes normal as well. CBC notable for white blood cell count 21.7 yesterday, down to 18.1 today. Hemoglobin is down to 11.2 this morning from 12.6 yesterday. IMPRESSION AND PLAN: My impression is that she probably has a Wernicke's aphasia. These are typically cardio-embolic to posterior division of the dominant hemisphere, middle cerebral artery. Sometimes, these are accompanied by quadrant anopsia or hemisensory deficits, but her language barrier currently makes it hard to assess. She also has a premorbid history of cognitive impairment. Given her atrial fibrillation and the likelihood that she is not going to be living in a completely supervised setting, I had recommended that she be anticoagulated. I would wait about 3 days to 5 days after her admission, and repeat her brain CT without contrast. If there is no hemorrhagic transformation , then I would recommend anticoagulation with either warfarin or a novel anticoagulant. I have spoken with her daughter and I answered questions. I spoke with Dr. Machado with my recommendations as well. [id number]/[facility] #: [id number] ASHA
[2017-12-10 06:35] LABS: ABS Basophils 0 10^3/ul (0-0.2); ABS Eosinophils 0 10^3/ul (0-0.6); ABS Lymphocytes 1.6 10^3/ul (1.0-4.8); ABS Monocytes 0.6 10^3/ul (0-0.8); ABS Neutrophils 10.2 10^3/ul (1.5-7.7); ABS Nucleated RBC 0 10^3/ul; Eosinophil % 0.2 % (0-6); Hematocrit 34 % (35-47); Hemoglobin 11.3 g/dl (12.0-16.0); Lymphocyte % 12.9 % (25-47); Mean Corpuscular HGB Conc 34 g/dl (31-36); Mean Corpuscular Hemoglobin 29 pg (27-31); Mean Corpuscular Volume 87 fL (80-97); Mean Platelet Volume 9.1 um3 (7.4-10.4); Nucleated Red Blood Cells % 0; Platelet Count 200 10^3/ul (150-450); Red Blood Count 3.85 10^6/ul (4.0-5.4); Red Cell Distribution Width 15 % (10.5-15); White Blood Count 12.5 10^3/ul (3.5-10.8)
[2017-12-10] MEDS: Fluticasone NASAL SPRAY 50MCG* 16 gm SPRAY BTL BOTH NARES SCH ×2 (07:49→19:57)
[2017-12-10] MEDS: Aspirin TAB* 325 MG PO SCH (08:30)
[2017-12-10] MEDS: Diltiazem CD CAP* 180 MG PO SCH (08:30)
[2017-12-10] MEDS: Insulin LISPRO* 1 UNITS UNIT SUBCUT SCH ×4 (08:32→21:03)
[2017-12-10] MEDS: Fondaparinux* 2.5 MG/0.5 ML SYRINGE SUBCUT SCH (08:32)
[2017-12-10] MEDS: Insulin GLARGINE(*) 1 UNITS UNIT SUBCUT SCH (08:33)
[2017-12-10] MEDS ORDERED: Magnesium Sulfate 1 GM IV* 1 GM/100 ML BAG IV ONE (09:05)
[2017-12-10] MEDS ORDERED: Potassium Chlor TAB* 20 MEQ TAB.ER PO ONE (09:05)
[2017-12-10] MEDS: cefTRIAXone(*) 1 GM in NS 0.9% 50 ML* 50 ML IVPB SCH (16:05)
--- NOTE | 2017-12-10 16:33 | PN ---
Subjective Date of Service: 12/10/17 Interval History: Pt able to follow some commands, speak some sentences and read large print(with some mistakes). still overall confused. Unable to understand the question "are you in pain". Leukocytosis resolved. UCx no significant growth. Objective Active Medications: Acetaminophen (Tylenol Tab*) 650 mg PO Q4H PRN PRN Reason: PAIN Last Admin: 12/09/17 15:41 Dose: 650 mg Aspirin (Aspirin Tab*) 325 mg PO DAILY [facility] Last Admin: 12/10/17 08:30 Dose: 325 mg Dextrose (D50w Syringe 50 Ml*) 12.5 gm IV PUSH .FOR FS < 60 - SS PRN PRN Reason: FS < 60 Diltiazem HCl (Cardizem Cd Cap*) 180 mg PO DAILY [facility] [place] Last Admin: 12/10/17 08:30 Dose: 180 mg Fluticasone Propionate (Flonase Nasal Lacey 50mcg*) 1 spray BOTH NARES BID [facility] [place] Last Admin: 12/10/17 07:49 Dose: Not Given Fondaparinux (Arixtra*) 2.5 mg SUBCUT DAILY [facility] [place] Last Admin: 12/10/17 08:32 Dose: 2.5 mg Ceftriaxone Sodium 1 gm/ (Sodium Chloride) 50 mls @ 200 mls/hr IVPB Q24H [facility] [place] Last Admin: 12/10/17 16:05 Dose: 200 mls/hr Insulin Glargine (Lantus(*)) 27 units SUBCUT DAILY [facility] [place] Last Admin: 12/10/17 08:33 Dose: 27 units Insulin Human Lispro (Humalog*) 0 units SUBCUT ACHS [facility] PRN Reason: Protocol Last Admin: 12/10/17 13:16 Dose: Not Given Metoprolol Tartrate (Lopressor Iv*) 5 mg IV Q6H PRN PRN Reason: BLOOD PRESSURE Vital Signs - 8 hr 12/10/17 11:20 Temperature 98.7 F Pulse Rate 87 Respiratory 16 Rate Blood Pressure 123/57 (mmHg) O2 Sat by Pulse 99 Oximetry Oxygen Devices in Use Now: Nasal Cannula Appearance: NAD. sitting in bed looking at magazines. Eyes: No Scleral Icterus Respiratory: Symmetrical Chest Expansion and Respiratory Effort, Clear to Auscultation Cardiovascular: NL Sounds; No Murmurs; No JVD, - - irregularly irregular. 2/6 BERT with radiation to neck, loudest at LUSB. Extremities: No Edema, - - left leg with significant diameter increase compared to right. scars and faint erythema to calfs b/l Skin: No Rash or Ulcers Neurological: - - not oriented to name, place, year. able to talk/read, follow some commands. Some receptive aphasia. Nutrition: Taking PO's Result Diagrams: 12/10/17 06:12 12/10/17 06:12 Additional Lab and Data: Laboratory Results - last 24 hr 12/09/17 12/10/17 12/10/17 20:15 06:12 06:12 WBC 12.5 H RBC 3.85 L Hgb 11.3 L Hct 34 L MCV 87 MCH 29 MCHC 34 RDW 15 Plt Count 200 MPV 9.1 Neut % (Auto) 81.7 Lymph % (Auto) 12.9 L [place] % (Auto) 4.8 Eos % (Auto) 0.2 Baso % (Auto) 0.4 Absolute Neuts (auto) 10.2 H Absolute Lymphs (auto) 1.6 Absolute Monos (auto) 0.6 Absolute Eos (auto) 0 Absolute Basos (auto) 0 Absolute Nucleated RBC 0 Nucleated RBC % 0 Sodium 139 Potassium 3.5 Chloride 109 Carbon Dioxide 24 Anion Gap 6 BUN 19 Creatinine 0.50 L Est GFR ( Amer) 150.4 Est GFR (Non-Af Amer) 117.0 BUN/Creatinine Ratio 38.0 H Glucose 133 H POC Glucose (mg/dL) 206 H Calcium 8.1 L Total Creatine Kinase 173 Triglycerides 79 Cholesterol 112 LDL Cholesterol 64 HDL Cholesterol 32.3 12/10/17 12/10/17 12/10/17 07:24 13:06 16:08 WBC RBC Hgb Hct MCV MCH MCHC RDW Plt Count MPV Neut % (Auto) Lymph % (Auto) [place] % (Auto) Eos % (Auto) Baso % (Auto) Absolute Neuts (auto) Absolute Lymphs (auto) Absolute Monos (auto) Absolute Eos (auto) Absolute Basos (auto) Absolute Nucleated RBC Nucleated RBC % Sodium Potassium Chloride Carbon Dioxide Anion Gap BUN Creatinine Est GFR ( Amer) Est GFR (Non-Af Amer) BUN/Creatinine Ratio Glucose POC Glucose (mg/dL) 144 H 210 H 173 H Calcium Total Creatine Kinase Triglycerides Cholesterol LDL Cholesterol HDL Cholesterol Microbiology and Other Data: Microbiology 12/08/17 14:21 Blood Venous Aerobic Blood Culture - Preliminary No Growth Day 2 12/08/17 14:21 Blood Venous Anaerobic Blood Culture - Preliminary No Growth Day 2 12/08/17 14:23 Blood Venous Aerobic Blood Culture - Preliminary No Growth Day 2 12/08/17 14:23 Blood Venous Anaerobic Blood Culture - Preliminary No Growth Day 2 12/08/17 13:40 Urine Urine Culture - Final Assess/Plan/Problems-Billing Assessment: 87 yo female with PMH DM2, a. fib (not on anticoagulation due to dementia and risk of pt taking wrong dose of med-as per pt's daughter), s/p R hip fx in 2017( since then WC bound, but able to transfer), dementia and delirium post op in 2017 was brought in found on the floor of her apartment covered in stool ,and bruises. Last time seen at baseline was 2 days prior. Suspected CVA. - Patient Problems (1) Aphasia Current Visit: Yes Status: Acute Code(s): R47.01 - APHASIA SNOMED Code(s) : 96007640 Comment: Slightly improving. Pt able to follow some commands. But still very confused with receptive aphasia. suspect pt had cardioembolic CVA Appreciate Neurology recs from Dr. Luther and Dr. Dawkins. Dr. Dawkins would prefer holding anticoagulation until pt calm enough to get an MRI. Original plan per Dr. Luther was repeat CTH in 3-5days from admission. cont ASA PT/OT/speech therapy ongoing --- mechanical ground texture, thin liquids okay. Neurochecks (2) Atrial fibrillation with rapid ventricular response Current Visit: Yes Status: Acute Code(s): I48.91 - UNSPECIFIED ATRIAL FIBRILLATION SNOMED Code(s): 734818403575494 Comment: Known a. fib. Cont Cardizem CD and lopressor IV prn Daughter agrees to anticoagulation , since likely pt will require STR at d/c. timing as above (after MRI brain vs repeat CTH if unable to obtain). (3) DM2 (diabetes mellitus, type 2) Current Visit: Yes Status: Acute Comment: cont home Lantus 27U and SSI (4) DNR (do not resuscitate) Current Visit: Yes Status: Acute Comment: DNR, MOLST signed (5) DVT prophylaxis Current Visit: Yes Status: Acute Code(s): HKA0692 - SNOMED Code(s): 974052153 Comment: Arixtra due to h/o HIT (6) Decubitus skin ulcer Current Visit: Yes Status: Acute Code(s): L89.90 - PRESSURE ULCER OF UNSPECIFIED SITE, UNSPECIFIED STAGE SNOMED Code(s): 165769821 Comment: on sacrum, stage 2 and 3. wound care ordered. Air matress ordered (7) Encephalopathy acute Current Visit: Yes Status: Acute Code(s): G93.40 - ENCEPHALOPATHY, UNSPECIFIED SNOMED Code(s): 69333692 Comment: Multifactiorial: related to severe sepsis and possible CVA Improving but still with sensory aphasia (8) HIT (heparin-induced thrombocytopenia) Current Visit: Yes Status: Acute Code(s): D75.82 - HEPARIN INDUCED THROMBOCYTOPENIA (HIT) SNOMED Code(s): 18604802 Comment: h/o in the past (9) Rhabdomyolysis Current Visit: Yes Status: Acute Code(s): M62.82 - RHABDOMYOLYSIS SNOMED Code(s): 178848920 Comment: resolved. mild. post fall (10) Troponin I above reference range Current Visit: Yes Status: Acute Code(s): R74.8 - ABNORMAL LEVELS OF OTHER SERUM ENZYMES SNOMED Code(s): 025344531 Comment: suspect due to demand ischemia and rhabdo echo ordered (11) SIRS (systemic inflammatory response syndrome) Current Visit: Yes Status: Acute Code(s): R65.10 - SIRS OF NON-INFECTIOUS ORIGIN W/O ACUTE ORGAN DYSFUNCTION SNOMED Code(s): 931014098 Comment: leukocytosis (resolving on cftx), tachycardia(Afib RVR), tachypnia ( max of 27) encephalopathy(in setting of suspected CVA). BP preserved. UA 2+ LE, 3+ wbc, no bacteria. UCx w/o significant growth. no lactic acidosis. (12) Swelling of lower extremity Current Visit: Yes Status: Acute Code(s): M79.89 - OTHER SPECIFIED SOFT TISSUE DISORDERS SNOMED Code(s): 565350968 Comment: Right greater that left. Will get Duplex US to rule out DVT. Status and Disposition: Inpatient. Likely will need SNF
--- NOTE | 2017-12-10 22:33 | PN ---
PROGRESS NOTE: DATE OF SERVICE: 12/10/17 HISTORY OF PRESENT ILLNESS: Bess Briceno is an 87-year-old woman seen by Dr. Luther yesterday for neurologic consultation in the setting of being found down on 12/08/17. From the notes it appeared at baseline, she is in a wheelchair. She was admitted with a diagnosis of urosepsis and dehydration, albeit urinalysis did not grow out an organism. Her white count was quite high at 27.1 with 89.2% neutrophils with improvement since admission. She was noted to be in rapid AFib. She was not anticoagulated secondary to falls and she is on aspirin. She does have a history of heparin-induced thrombocytopenia. Rhabdomyolysis was noted. She was hydrated. Her urinalysis did not show growth. She was noted to have decubitus ulcers. Her troponin was noted to be elevated. Dr. Luther was consulted given her neurologic status, history of atrial fibrillation, and anticoagulation. He noted Wernicke's aphasia and suggested repeat CT in the near future and if negative for bleed, restarting anticoagulation for prevention of stroke in the setting of atrial fibrillation. Her CT scan showed periventricular small vessel ischemic disease. She has risk factors of hypertension, diabetes, atrial fibrillation. She is noted to have a baseline of dementia. PHYSICAL EXAMINATION: Most recent temperature is 98.7 degrees Fahrenheit, her pulse was 87 with irregularly irregular rhythm, respiratory rate was 16, her saturation was 99%, her blood pressure was 123/57. She had irregularly irregular rhythm. Her lungs were clear to auscultation. She had enlarged left calf compared to the right with distal redness and warmth of her legs and healing wounds on her left greater than right leg. Pulses were present in the feet. There was no cord palpated in the left leg. She was asleep when I first came in, but awoke easily, at times she had word salad, other times she was able to get out a sentence such as planning to go home with her daughter because has difficulty walking. She could not answer orientation questions. She had full extraocular movements and did count fingers in all jon. Her facial expression was symmetric. There was no dysarthria. She moved her arms symmetrically, but it was hard to get her to follow commands. She did have good classroom assistant bilaterally. She lifted both legs off the bed and she appeared to feel sensation in all limbs DIAGNOSTIC STUDIES/LAB DATA: Includes CBC with a white count that has improved at 12.5 with 10.2 absolute neutrophils. Her hemoglobin and hematocrit were 11.3 and 34 respectively and her platelet count was within normal limits. Her electrolytes today showed an elevated BUN-creatinine ratio at 38. Her glucose is elevated at 133 and her calcium is low at 8.1. She had an transthoracic echocardiogram, which showed ejection fraction of 45% to 50%; however, difficult to estimate in the setting of atrial fibrillation. There were multiple valvular changes with severe dilatation of the left atrium, and mild pulmonary hypertension. Please see report for details. CT of the brain was also reviewed directly, which showed periventricular small vessel ischemic disease. IMPRESSION AND PLAN: Bess Briceno is an 87-year-old woman with history of hypertension; diabetes; atrial fibrillation, off anticoagulation; dementia, who was admitted with elevated white count, rhabdomyolysis, changes in the urine suggesting urosepsis, dehydration, who has shown improvement with treatment with antibiotics, the sepsis is of unclear cause. Her neutrophils and white blood cell count are improving. She does have decubitus ulcers and of note on examination, there was left greater than right leg swelling with distal skin changes and warmth. This raises the question of cellulitis and deep venous thrombosis, and I will discuss this with hospitalist team, who are working her up. In regards to neurologic issues, she does have expressive aphasia and is noted at baseline to have dementia; her clinical baseline is unclear as I have not met her before. It is certainly possible, she has worsened in the setting of infection. Although anticoagulation is indicated to prevent strokes in the setting of atrial fibrillation, I would like to see an MRI of the brain if possible prior to starting anticoagulation to ensure safety. Hopefully, with this continued improvement, she will be able to have an MRI performed. TIME SPENT: Over 30 minutes was spent in patient care and review of chart, scans, notes, examination of the patient, and coordination of care. [id number]/[facility] #: [id number] ASHA
[2017-12-11] MEDS: Insulin LISPRO* 1 UNITS UNIT SUBCUT SCH ×4 (08:38→21:12)
[2017-12-11] MEDS: Aspirin TAB* 325 MG PO SCH (08:49)
[2017-12-11] MEDS: Diltiazem CD CAP* 180 MG PO SCH (08:50)
[2017-12-11] MEDS: Fluticasone NASAL SPRAY 50MCG* 16 gm SPRAY BTL BOTH NARES SCH ×2 (08:50→20:40)
[2017-12-11] MEDS: Insulin GLARGINE(*) 1 UNITS UNIT SUBCUT SCH (08:57)
[2017-12-11] MEDS: Fondaparinux* 2.5 MG/0.5 ML SYRINGE SUBCUT SCH (08:57)
--- NOTE | 2017-12-11 12:13 | RAD ---
Indication: Left leg edema. Duplex Doppler sonography of the deep venous system of the left lower extremity deep venous system was performed. Bilaterally the common femoral veins appear patent and compressible. Left proximal greater saphenous vein, proximal deep femoral vein, femoral vein, popliteal vein, posterior tibial veins and peroneal veins appear patent and compressible. IMPRESSION: NO EVIDENCE OF DEEP VENOUS THROMBOSIS IS IDENTIFIED.
[2017-12-11] MEDS: cefTRIAXone(*) 1 GM in NS 0.9% 50 ML* 50 ML IVPB SCH (14:48)
--- NOTE | 2017-12-11 16:19 | PN ---
Subjective Date of Service: 12/11/17 Interval History: Patient was seen and examined at bedside. She remains confused, with progressive expressive aphasia. She does not respond to most questions asked, however, she occasional does stating "she does not have a baby". She turned her head to indicate "NO" when asked if she's having any pain. Seen by neurology yesterday, anticoagulation therapy on hold until brain MRI obtained. No other subjective findings can be obtained due to her mental status. Family History: Unchanged from Admission Social History: Unchanged from Admission Past Medical History: Unchanged from Admission Objective Active Medications: Acetaminophen (Tylenol Tab*) 650 mg PO Q4H PRN PRN Reason: PAIN Last Admin: 12/09/17 15:41 Dose: 650 mg Aspirin (Aspirin Tab*) 325 mg PO DAILY [facility] Last Admin: 12/11/17 08:49 Dose: 325 mg Dextrose (D50w Syringe 50 Ml*) 12.5 gm IV PUSH .FOR FS < 60 - SS PRN PRN Reason: FS < 60 Diltiazem HCl (Cardizem Cd Cap*) 180 mg PO DAILY [facility] Last Admin: 12/11/17 08:50 Dose: 180 mg Fluticasone Propionate (Flonase Nasal [place] 50mcg*) 1 spray BOTH NARES BID [facility] Last Admin: 12/11/17 08:50 Dose: Not Given Fondaparinux (Arixtra*) 2.5 mg SUBCUT DAILY [facility] Last Admin: 12/11/17 08:57 Dose: 2.5 mg Ceftriaxone Sodium 1 gm/ (Sodium Chloride) 50 mls @ 200 mls/hr IVPB Q24H [facility] Last Admin: 12/11/17 14:48 Dose: 200 mls/hr Insulin Glargine (Lantus(*)) 27 units SUBCUT DAILY [facility] Last Admin: 12/11/17 08:57 Dose: 27 units Insulin Human Lispro (Humalog*) 0 units SUBCUT ACHS [facility] PRN Reason: Protocol Last Admin: 12/11/17 11:32 Dose: Not Given Metoprolol Tartrate (Lopressor Iv*) 5 mg IV Q6H PRN PRN Reason: BLOOD PRESSURE Vital Signs - 8 hr 12/11/17 12/11/17 12:02 16:02 Temperature 99.2 F 98.6 F Pulse Rate 90 93 Respiratory 16 16 Rate Blood Pressure 120/59 114/54 (mmHg) O2 Sat by Pulse 99 98 Oximetry Oxygen Devices in Use Now: None Appearance: Laying in bed, watching TV, appears comfortable and in NAD Eyes: No Scleral Icterus, PERRLA Ears/Nose/Mouth/Throat: Clear Oropharnyx, Mucous Membranes Moist Neck: NL Appearance and Movements; NL JVP, Trachea Midline Respiratory: Symmetrical Chest Expansion and Respiratory Effort, Clear to Auscultation Cardiovascular: NL Sounds; No Murmurs; No JVD, - - Irrigularly irrigular rate. Abdominal: NL Sounds; No Tenderness; No Distention Extremities: - - Left leg with mild calf swelling compared to right. Minimal distal erythema bilaterally. Neurological: - - Alert and oriented to self only. Sensation intact in both upper and lower extremities. Good hand certified juvenile probation officer bilaterally. Symmetric facial expressions. Nutrition: Taking PO's Result Diagrams: 12/10/17 06:12 12/10/17 06:12 Additional Lab and Data: Laboratory Results - last 24 hr 12/09/17 12/10/17 12/10/17 20:15 06:12 06:12 WBC 12.5 H RBC 3.85 L Hgb 11.3 L Hct 34 L MCV 87 MCH 29 MCHC 34 RDW 15 Plt Count 200 MPV 9.1 Neut % (Auto) 81.7 Lymph % (Auto) 12.9 L Ransom % (Auto) 4.8 Eos % (Auto) 0.2 Baso % (Auto) 0.4 Absolute Neuts (auto) 10.2 H Absolute Lymphs (auto) 1.6 Absolute Monos (auto) 0.6 Absolute Eos (auto) 0 Absolute Basos (auto) 0 Absolute Nucleated RBC 0 Nucleated RBC % 0 Sodium 139 Potassium 3.5 Chloride 109 Carbon Dioxide 24 Anion Gap 6 BUN 19 Creatinine 0.50 L Est GFR ( Amer) 150.4 Est GFR (Non-Af Amer) 117.0 BUN/Creatinine Ratio 38.0 H Glucose 133 H POC Glucose (mg/dL) 206 H Calcium 8.1 L Total Creatine Kinase 173 Triglycerides 79 Cholesterol 112 LDL Cholesterol 64 HDL Cholesterol 32.3 12/10/17 12/10/17 12/10/17 07:24 13:06 16:08 WBC RBC Hgb Hct MCV MCH MCHC RDW Plt Count MPV Neut % (Auto) Lymph % (Auto) Ransom % (Auto) Eos % (Auto) Baso % (Auto) Absolute Neuts (auto) Absolute Lymphs (auto) Absolute Monos (auto) Absolute Eos (auto) Absolute Basos (auto) Absolute Nucleated RBC Nucleated RBC % Sodium Potassium Chloride Carbon Dioxide Anion Gap BUN Creatinine Est GFR ( Amer) Est GFR (Non-Af Amer) BUN/Creatinine Ratio Glucose POC Glucose (mg/dL) 144 H 210 H 173 H Calcium Total Creatine Kinase Triglycerides Cholesterol LDL Cholesterol HDL Cholesterol Microbiology and Other Data: . Diagnostic Imaging: Patient Name: CARLOS MARTINEZ Medical Record#: [id number] Ordering Physician: Jayden Antunez MD Acct.#: [id number] : 1930 Age: 87 Sex: F Location: [address] [place] [address] MEDICAL/TELEMETRY Exam Date: 12/11/171630 ADM Status: ADM IN Order Information: VL LOWER EXT VEINS LEFT Accession Number: [id number] CPT: 31658 Indication: Left leg edema. Duplex Doppler sonography of the deep venous system of the left lower extremity deep venous system was performed. Bilaterally the common femoral veins appear patent and compressible. Left proximal greater saphenous vein, proximal deep femoral vein, femoral vein, popliteal vein, posterior tibial veins and peroneal veins appear patent and compressible. IMPRESSION: NO EVIDENCE OF DEEP VENOUS THROMBOSIS IS IDENTIFIED. <Electronically signed by Martita King MD in OV> 12/11/17 1209 Dictated By: Martita King MD EKG Data: . Assess/Plan/Problems-Billing Assessment: 87 yo female with PMH DM2, a. fib (not on anticoagulation due to dementia and risk of pt taking wrong dose of med-as per pt's daughter), s/p R hip fx in 2017( since then WC bound, but able to transfer), dementia and delirium post op in 2017 was brought in found on the floor of her apartment covered in stool ,and bruises. Last time seen at baseline was 2 days prior. Suspected CVA. - Patient Problems (1) Aphasia Current Visit: Yes Status: Acute Priority: High Comment: - Continues to improve. Pt able to follow some commands. But still very confused with receptive aphasia. suspect pt had cardioembolic CVA - Appreciate Neurology recs from Dr. Luther and Dr. Dawkins. Dr. Dawkins would prefer holding anticoagulation until pt calm enough to get an MRI. Original plan per Dr. Luther was repeat CTH in 3-5days from admission. Will plan for MRI brain tomorrow. - cont ASA - PT/OT/speech therapy ongoing - mechanical ground texture, thin liquids okay. - Neurochecks (2) Atrial fibrillation with rapid ventricular response Current Visit: Yes Status: Acute Comment: - Known a. fib. Cont Cardizem CD and lopressor IV prn - Daughter agrees to anticoagulation , since likely pt will require STR at d/c. timing as above (after MRI brain vs repeat CTH if unable to obtain). (3) DM2 (diabetes mellitus, type 2) Current Visit: No Status: Chronic Comment: - cont home Lantus 27U and SSI (4) Decubitus skin ulcer Current Visit: Yes Status: Acute Comment: - on sacrum, stage 2 and 3. - wound care ordered. 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 mild. - post fall (7) SIRS (systemic inflammatory response syndrome) Current Visit: Yes Status: Acute Comment: -leukocytosis (resolving on cftx), tachycardia(Afib RVR), tachypnia (max of 27) encephalopathy(in setting of suspected CVA). BP preserved. UA 2+ LE, 3+ wbc, no bacteria. UCx w/o significant growth. - no lactic acidosis. (8) Swelling of lower extremity Current Visit: Yes Status: Acute Comment: - Right greater that left. - Lower extremities doppler with no DVT noted (9) DNR (do not resuscitate) Current Visit: Yes Status: Acute Comment: DNR, MOLST signed (10) DVT prophylaxis Current Visit: Yes Status: Acute Comment: - Arixtra due to h/o HIT Status and Disposition: Inpatient. Likely will need SNF
--- NOTE | 2017-12-11 21:52 | PN ---
PROGRESS NOTE: DATE OF SERVICE: 12/11/17 HISTORY OF PRESENT ILLNESS: Bess Briceno had no new complaints other than repeating that "there is no champagne." She was fixated on alcohol and went through different types of alcohol and was difficult to get off this topic. She was perseverating. She did speak in sentences. PHYSICAL EXAMINATION: Most recent temperature is 98.2, heart rate 105, respiratory rate 16, saturation 99%, blood pressure 142/68. She had irregularly irregular rhythm. Her lungs were clear to auscultation. She had full extraocular movements. She did count fingers in all jon. Her facial expression was symmetric. She gave excellent strength in bilateral upper extremities with very firm armored car guard resistance with biceps and triceps by using her armored car guard and pulling and pushing in her lower extremities. She quickly withdrew both of her legs and gave good strength and hip flexion and knee flexion. She did not participate in further coordination sensory or gait exam. DIAGNOSTIC STUDIES/LAB DATA: Includes blood cultures, which thus far have shown no growth. IMPRESSION: Bess Briceno is an 87-year-old with a known history of dementia , admitted for sepsis dehydration, rapid atrial fibrillation, found to have rhabdomyolysis, decubitus ulcers, elevated troponin, and is getting ultrasound for possible deep venous thrombosis and has distal leg changes with redness, healing wounds, and warmth. In regards to the question on anticoagulation setting of atrial fibrillation, this will be the appropriate treatment for prevention of stroke in the setting of atrial fibrillation. If her current expressive aphasia is secondary to stroke, it would have to be isolated expressive aphasia, as to the best my ability to examine her, I do not see any other focal findings in vision changes , facial expression, strength in her limited exam. With the baseline dementia, one cannot exclude primary progressive aphasia. Prior to starting the anticoagulation, most ideal would be obtaining an MRI Brain to make there is no underlying evidence of previous bleeds, this may be seen in amyloidosis. Participation in ability to get MRI may be the limitation. I will be signing her out to Dr. Sanchez, who will be picking up the hospital service tomorrow. TIME SPENT: 20 minutes were spent in patient's care. [id number]/[facility] #: [id number] ASHA
[2017-12-12] MEDS: Insulin LISPRO* 1 UNITS UNIT SUBCUT SCH ×4 (08:16→20:44)
[2017-12-12] MEDS: Fluticasone NASAL SPRAY 50MCG* 16 gm SPRAY BTL BOTH NARES SCH ×2 (09:41→20:46)
[2017-12-12] MEDS: Fondaparinux* 2.5 MG/0.5 ML SYRINGE SUBCUT SCH (09:41)
[2017-12-12] MEDS: Aspirin TAB* 325 MG PO SCH (09:41)
[2017-12-12] MEDS: Diltiazem CD CAP* 180 MG PO SCH (09:41)
[2017-12-12] MEDS ORDERED: Insulin GLARGINE(*) 1 UNITS UNIT SUBCUT SCH ×2 (10:54→21:00)
[2017-12-12] MEDS: Insulin GLARGINE(*) 1 UNITS UNIT SUBCUT SCH (10:58)
--- NOTE | 2017-12-12 12:01 | RAD ---
HISTORY: Altered mental status, expressive aphasia COMPARISONS: Head CT dated December 08, 2017 TECHNIQUE: The following sequences were obtained of the head: Sagittal T1-weighted images, axial T2-weighted images, axial FLAIR images, axial susceptibility weighted images, axial T1-weighted images. Additionally, axial diffusion-weighted images were obtained with calculated apparent diffusion coefficients. FINDINGS: HEMORRHAGE/INFARCT: There is restricted diffusion within the right inferior cerebellum consistent with subacute nonhemorrhagic infarct. Elsewhere, there is no hemorrhage or acute infarct. MASSES/SHIFT: There is no mass or shift. EXTRA-AXIAL SPACES/MENINGES: There are no extra-axial fluid collections. SULCI AND VENTRICLES: There is diffuse and proportional enlargement of the sulci and ventricles. CEREBRUM: There is multifocal and confluent elevated T2/FLAIR signal in the periventricular and subcortical white matter. BRAINSTEM: There is elevated T2/FLAIR signal within the pontine white matter. CEREBELLUM: There is elevated T2/FLAIR signal within the right inferior cerebellum corresponding to the area of restricted diffusion. The cerebellar tonsils are normal in size and position. SELLA: The sella is normal. PINEAL: The pineal region is clear. CP ANGLE/TEMPORAL BONES: The labyrinthine structures are grossly normal. VESSELS: Normal flow-voids are noted within the visualized vertebral vasculature. DIFFUSION ABNORMALITIES: As noted above, there is restricted diffusion within the right inferior cerebellum. PARANASAL SINUSES/MASTOIDS: There is a small mucous retention cyst of the right maxillary sinus. ORBITS: The orbits are unremarkable. BONES AND SOFT TISSUE: No bone or soft tissue abnormalities are noted. OTHER: None IMPRESSION: 1. RESTRICTED DIFFUSION OF THE RIGHT INFERIOR CEREBELLUM CONSISTENT WITH SUBACUTE NONHEMORRHAGIC INFARCT. 2. DIFFUSE INVOLUTIONAL CHANGE WITH ELEVATED T2/FLAIR SIGNAL IN THE PERIVENTRICULAR, SUBCORTICAL, AND PONTINE WHITE MATTER, MOST CONSISTENT WITH CHRONIC SMALL VESSEL ISCHEMIA.
[2017-12-12] MEDS: cefTRIAXone(*) 1 GM in NS 0.9% 50 ML* 50 ML IVPB SCH (15:13)
--- NOTE | 2017-12-12 15:52 | PN ---
Subjective Date of Service: 12/12/17 Interval History: Patient is visiting with her daughter. Alert and awake. Follows commands. [place]. Noted dementia at her baseline. Denies any deficits. Per daughter the patient seems at her baseline mentally and seems to have some generalized weakness. The pt was was telling her daughter she is not sure she wants to go home after rehab and live alone. Family History: Unchanged from Admission Social History: Unchanged from Admission Past Medical History: Unchanged from Admission Objective Active Medications: Acetaminophen (Tylenol Tab*) 650 mg PO Q4H PRN PRN Reason: PAIN Last Admin: 12/09/17 15:41 Dose: 650 mg Aspirin (Aspirin Tab*) 325 mg PO DAILY [facility] Last Admin: 12/12/17 09:41 Dose: 325 mg Dextrose (D50w Syringe 50 Ml*) 12.5 gm IV PUSH .FOR FS < 60 - SS PRN PRN Reason: FS < 60 Diltiazem HCl (Cardizem Cd Cap*) 180 mg PO DAILY [facility] Last Admin: 12/12/17 09:41 Dose: 180 mg Fluticasone Propionate (Flonase Nasal [place] 50mcg*) 1 spray BOTH NARES BID [facility] Last Admin: 12/12/17 09:41 Dose: 1 spray Fondaparinux (Arixtra*) 2.5 mg SUBCUT DAILY [facility] Last Admin: 12/12/17 09:41 Dose: 2.5 mg Ceftriaxone Sodium 1 gm/ (Sodium Chloride) 50 mls @ 200 mls/hr IVPB Q24H [facility] Last Admin: 12/12/17 15:13 Dose: 200 mls/hr Insulin Glargine (Lantus(*)) 10 units SUBCUT [facility]PM [facility] Insulin Human Lispro (Humalog*) 0 units SUBCUT ACHS [facility] PRN Reason: Protocol Last Admin: 12/12/17 12:01 Dose: 4 unit Metoprolol Tartrate (Lopressor Iv*) 5 mg IV Q6H PRN PRN Reason: BLOOD PRESSURE Vital Signs - 8 hr 12/12/17 12/12/17 08:00 11:43 Temperature 97.3 F Pulse Rate 97 Respiratory 16 16 Rate Blood Pressure 130/60 (mmHg) O2 Sat by Pulse 99 Oximetry Oxygen Devices in Use Now: None Appearance: 87 yo A+O female sitting up in bed in NAD - dementia noted at baseline Eyes: No Scleral Icterus, PERRLA Ears/Nose/Mouth/Throat: NL Teeth, Lips, Gums, Mucous Membranes Moist Neck: NL Appearance and Movements; NL JVP Respiratory: Symmetrical Chest Expansion and Respiratory Effort, Clear to Auscultation Cardiovascular: NL Sounds; No Murmurs; No JVD, RRR, No Edema Extremities: No Clubbing, Cyanosis, - - 1_ LE edema b/l Neurological: NL Muscle Strength and Tone, - - alert Lines/Tubes/Other Access: Clean, Dry and Intact Peripheral IV Nutrition: Taking PO's Result Diagrams: 12/10/17 06:12 12/10/17 06:12 Additional Lab and Data: Laboratory Results - last 24 hr 12/09/17 12/10/17 12/10/17 20:15 06:12 06:12 WBC 12.5 H RBC 3.85 L Hgb 11.3 L Hct 34 L MCV 87 MCH 29 MCHC 34 RDW 15 Plt Count 200 MPV 9.1 Neut % (Auto) 81.7 Lymph % (Auto) 12.9 L Dick[place] % (Auto) 4.8 Eos % (Auto) 0.2 Baso % (Auto) 0.4 Absolute Neuts (auto) 10.2 H Absolute Lymphs (auto) 1.6 Absolute Monos (auto) 0.6 Absolute Eos (auto) 0 Absolute Basos (auto) 0 Absolute Nucleated RBC 0 Nucleated RBC % 0 Sodium 139 Potassium 3.5 Chloride 109 Carbon Dioxide 24 Anion Gap 6 BUN 19 Creatinine 0.50 L Est GFR ( Amer) 150.4 Est GFR (Non-Af Amer) 117.0 BUN/Creatinine Ratio 38.0 H Glucose 133 H POC Glucose (mg/dL) 206 H Calcium 8.1 L Total Creatine Kinase 173 Triglycerides 79 Cholesterol 112 LDL Cholesterol 64 HDL Cholesterol 32.3 12/10/17 12/10/17 12/10/17 07:24 13:06 16:08 WBC RBC Hgb Hct MCV MCH MCHC RDW Plt Count MPV Neut % (Auto) Lymph % (Auto) Dick[place] % (Auto) Eos % (Auto) Baso % (Auto) Absolute Neuts (auto) Absolute Lymphs (auto) Absolute Monos (auto) Absolute Eos (auto) Absolute Basos (auto) Absolute Nucleated RBC Nucleated RBC % Sodium Potassium Chloride Carbon Dioxide Anion Gap BUN Creatinine Est GFR ( Amer) Est GFR (Non-Af Amer) BUN/Creatinine Ratio Glucose POC Glucose (mg/dL) 144 H 210 H 173 H Calcium Total Creatine Kinase Triglycerides Cholesterol LDL Cholesterol HDL Cholesterol Microbiology and Other Data: . Diagnostic Imaging: Patient Name: CARLOS MARTINEZ Medical Record#: [id number] Ordering Physician: Jayden Antunez MD Acct.#: [id number] : 1930 Age: 87 Sex: F Location: [address] [place] [address] - MEDICAL/TELEMETRY Exam Date: 12/11/171630 ADM Status: ADM IN Order Information: VL LOWER EXT VEINS LEFT Accession Number: [id number] CPT: 01365 Indication: Left leg edema. Duplex Doppler sonography of the deep venous system of the left lower extremity deep venous system was performed. Bilaterally the common femoral veins appear patent and compressible. Left proximal greater saphenous vein, proximal deep femoral vein, femoral vein, popliteal vein, posterior tibial veins and peroneal veins appear patent and compressible. IMPRESSION: NO EVIDENCE OF DEEP VENOUS THROMBOSIS IS IDENTIFIED. <Electronically signed by Martita King MD in OV> 12/11/17 1209 Dictated By: Martita King MD EKG Data: . Assess/Plan/Problems-Billing Assessment: 87 yo female with PMH DM2, a. fib (not on anticoagulation due to dementia and risk of pt taking wrong dose of med-as per pt's daughter), s/p R hip fx in 2017( since then WC bound, but able to transfer), dementia and delirium post op in 2017 was brought in found on the floor of her apartment covered in stool ,and bruises. Last time seen at baseline was 2 days prior. Suspected CVA. 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 Sanchez, Neurology, consult - ok to start xarelto on 12/13 ( this was discussed with the daughter - risks were discussed and daughter states understanding). - DC ASA. Per Neuro, no need for statin. - Continute PT/OT with subacute rehab (2) Atrial fibrillation with rapid ventricular response Comment: - Known a. fib. Cont Cardizem CD - Daughter agrees to anticoagulation (see above) (3) Dementia Comment: supportive tx (4) Decubitus skin ulcer Comment: - on sacrum, stage 2 and 3. - wound care ordered. 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 mild. - post fall (7) SIRS (systemic inflammatory response syndrome) Comment: - resolved - no obvious source - leukocytosis, tachycardia(Afib RVR), tachypnia in the setting of acute CVA on admission. - 4 days of ceftriaxone, plan to DC. - UCx and Blood Cx w/o significant growth. Chest xray negative - no lactic acidosis. (8) Swelling of lower extremity Comment: - Right greater that left. - Lower extremities doppler with no DVT noted (9) DM2 (diabetes mellitus, type 2) Comment: - cont lantus (decrease dose d/t low BG this am), continue lispro SS (10) DNR (do not resuscitate) Comment: DNR, MOLST signed (11) DVT prophylaxis Comment: - Arixtra due to h/o HIT - DC this tomorrow and start xarelto Status and Disposition: Inpatient. Plan for subacute rehab
--- NOTE | 2017-12-13 04:12 | PN ---
NEUROLOGICAL FOLLOWUP NOTE: DATE OF VISIT: 12/12/17 PATIENT OF: CHRISTOPHER Blas and Dr. Luther. HISTORY: This is a neurological followup on this 87-year-old woman for possible stroke in the setting of atrial fibrillation. She remains with a significant aphasia and confusion and has baseline dementia and was found down on her floor with her apartment in disarray. She has chronic atrial fibrillation. REVIEW OF SYSTEMS: She is unable to give a review of systems. MEDICATIONS: Include: 1. Aspirin 325. 2. Ceftriaxone. 3. Cardizem 180 daily. 4. Flonase 1 spray both nares b.i.d. 5. Arixtra 2.5 subcu daily. 6. Insulin 10 units subcu q.p.m. 7. Metoprolol 5 mg IV p.r.n. blood pressure parameters. PHYSICAL EXAMINATION: Temperature 97.3, pulse 97, respirations 16, blood pressure 130/60. She is alert, but has limited speech. She is unable to follow one-step commands such as touch my finger or even midline such as close your eyes. When I go to shake her hand, she will extend her hand to shake my hand. She did this with both her left and right hands and did so relatively smoothly. Cranial nerves II through XII were intact by observation, but not by following commands. She had full extraocular movements without clear nystagmus. The facies appeared symmetric. Her speech was limited and did not make sense. Chest: Clear. Cardiovascular: Irregular rate and rhythm. Abdomen is soft with positive bowel sounds. DIAGNOSTIC STUDIES/LAB DATA: I reviewed her MRI scan, which showed a right inferior cerebellar subacute infarct with diffuse white matter disease that is most likely secondary chronic small vessel ischemic disease. She had a venous Doppler, which was negative. She had a transthoracic echo that showed a very dilated atrium and she is in her chronic atrial fib. White count 12.5 on 12/10/17. Blood sugar today was 206. IMPRESSION AND PLAN: In the setting of atrial fibrillation and new onset stroke , the treatment of choice would be anticoagulation, either with novel anticoagulant or with Coumadin. If she is going into a setting where she would not be a fall risk and be monitored, this would be a reasonable thing to do and I would have her just on that alone; however, if she is going to be in a place where falling is still a concern or bumping her head in any way, then I would have her just continue her on antiplatelet agents because she would be considered too much of a danger for bleeding. Thank you for sharing her case. I have a call in to her hospitalist. [id number]/[facility] #: [id number] ASHA
[2017-12-13 05:49] LABS: ABS Basophils 0 10^3/ul (0-0.2); ABS Eosinophils 0.2 10^3/ul (0-0.6); ABS Lymphocytes 1.9 10^3/ul (1.0-4.8); ABS Monocytes 0.6 10^3/ul (0-0.8); ABS Neutrophils 7.3 10^3/ul (1.5-7.7); ABS Nucleated RBC 0 10^3/ul; Eosinophil % 2.5 % (0-6); Hematocrit 36 % (35-47); Lymphocyte % 18.7 % (25-47); Mean Corpuscular HGB Conc 33 g/dl (31-36); Mean Corpuscular Hemoglobin 29 pg (27-31); Mean Corpuscular Volume 88 fL (80-97); Mean Platelet Volume 8.8 um3 (7.4-10.4); Nucleated Red Blood Cells % 0; Platelet Count 225 10^3/ul (150-450); Red Cell Distribution Width 14 % (10.5-15); White Blood Count 10.1 10^3/ul (3.5-10.8)
[2017-12-13 05:59] LABS: EGFR Non-African American 111.8 (>60)
[2017-12-13] MEDS ORDERED: Fondaparinux* 2.5 MG/0.5 ML SYRINGE SUBCUT SCH (06:00)
--- NOTE | 2017-12-13 08:44 | PN ---
Subjective Date of Service: 12/13/17 Interval History: Ms. Briceno reports that she is feeling quite well this morning and is eager for discharge to [facility]. Family History: Unchanged from Admission Social History: Unchanged from Admission Past Medical History: Unchanged from Admission Objective Active Medications: Acetaminophen (Tylenol Tab*) 650 mg PO Q4H PRN Dextrose (D50w Syringe 50 Ml*) 12.5 gm IV PUSH .FOR FS < 60 - SS PRN Diltiazem HCl (Cardizem Cd Cap*) 180 mg PO DAILY THIERNO Fluticasone Propionate (Flonase Nasal [place] 50mcg*) 1 spray BOTH NARES BID THIERNO Insulin Glargine (Lantus(*)) 10 units SUBCUT QPM THIERON Insulin Human Lispro (Humalog*) 0 units SUBCUT ACHS THIERNO Metoprolol Tartrate (Lopressor Iv*) 5 mg IV Q6H PRN Rivaroxaban (Xarelto(*)) 20 mg PO DAILY@1800 THIERNO Vital Signs: Temp Pulse Resp BP Pulse Ox 98.4 F 88 16 122/46 97 12/13/17 04:07 12/13/17 04:07 12/13/17 04:07 12/13/17 04:07 12/13/17 04:07 Oxygen Devices in Use Now: None Appearance: Female sitting up in chair in NAD Eyes: No Scleral Icterus Ears/Nose/Mouth/Throat: Mucous Membranes Moist Neck: Trachea Midline Respiratory: Symmetrical Chest Expansion and Respiratory Effort, Clear to Auscultation Cardiovascular: - - +1 pitting edema to bilateral LEs. Systolic murmur at sternal border. Irregular. Abdominal: NL Sounds; No Tenderness; No Distention Lymphatic: No Cervical Adenopathy Skin: - - Bruises and abrasions to bilateral LEs, reported decubitus ulcers Neurological: NL Muscle Strength and Tone, - - Alert, some expressive aphasia noted, confused about details Nutrition: Taking PO's Result Diagrams: 12/13/17 05:17 12/13/17 05:17 Additional Lab and Data: . Microbiology and Other Data: . Diagnostic Imaging: . EKG Data: . Assess/Plan/Problems-Billing Assessment: Ms. Briceno is an 87 yo female with PMH DM2, afib (not on anticoagulation due to dementia and risk of pt taking wrong dose of med-as per pt's daughter), s/p R hip fx in 2017(since then WC bound, but able to transfer), dementia and delirium post op in 2017 was brought in found on the floor of her apartment covered in stool and bruises, found to have ischemic CVA. 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 Sanchez, Neurology, consult - ok to start xarelto on 12/13 ( this was discussed with the daughter - risks were discussed and daughter states understanding). - DC ASA. Per Neuro, no need for statin. - Continute PT/OT with subacute rehab (2) Aphasia Comment: - Continues to improve. - PT/OT/speech therapy ongoing - Mechanical ground texture, thin liquids okay. (3) Atrial fibrillation with rapid ventricular response Comment: - Known afib. Cont Cardizem CD. - Daughter agrees to anticoagulation (see above). (4) Decubitus skin ulcer Comment: - On sacrum, stage 2 and 3. - Wound care and air matress ordered (5) Rhabdomyolysis Comment: - Resolved. (6) SIRS (systemic inflammatory response syndrome) Comment: - Resolved - no obvious source. - Leukocytosis, tachycardia(Afib RVR), tachypnea in the setting of acute CVA, rhabo and prolonged downtime after on admission. - Completed 4 days of ceftriaxone, plan to DC. - UCx and Blood Cx w/o significant growth. Chest xray negative. No lactic acidosis. (7) Troponin I above reference range Comment: - Peaked at 0.39. EKG without evidence of ischemia. - Suspect due to demand ischemia and rhabdo. - Echo without significant wall motion or valvular abnormalities. (8) DM2 (diabetes mellitus, type 2) Comment: - BG reasonably controlled. - Cont lantus with lispro SS coverage PRN. 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 - Elevate when seated. May benefit from gentle diuresis at [facility]. (12) DVT prophylaxis Comment: - Xarelto (13) DNR (do not resuscitate) Comment: Status and Disposition: Discharge to [facility].
[2017-12-13 09:15] VITALS: BP 118/50
[2017-12-13] MEDS: Diltiazem CD CAP* 180 MG PO SCH (09:20)
[2017-12-13] MEDS: Fluticasone NASAL SPRAY 50MCG* 16 gm SPRAY BTL BOTH NARES SCH (09:20)
[2017-12-13] MEDS: Insulin LISPRO* 1 UNITS UNIT SUBCUT SCH (09:41)
--- NOTE | 2017-12-13 12:05 | DS ---
CC: Dr. Saavedra* DATE OF ADMISSION: 12/08/2017. DATE OF DISCHARGE: 12/13/2017. ATTENDING PHYSICIAN: Dr. Fabio Augustine* (dictation provided by Celena Garza NP) . PRIMARY DIAGNOSES: 1. Subacute CVA to the right inferior cerebellum. 2. Mild expressive and receptive aphasia. 3. Rhabdomyolysis. 4. SIRS, infection ruled out. SECONDARY DIAGNOSES: 1. Hypertension. 2. Atrial fibrillation. 3. Insulin dependent diabetes. 4. Dementia. 5. History of HIT. PAST SURGICAL HISTORY: 1. History of appendectomy. 2. History of right hip surgery 2016, patient now wheelchair bound. 3. History of vein stripping. 4. History of left first and second toe gangrene, status post amputation. MEDICATIONS AT THE TIME OF DISCHARGE: 1. Diltiazem CD 180 mg p.o. daily. 2. Fluticasone nasal spray one spray both nares b.i.d. 3. Tylenol 650 mg p.o. q.4 hours prn. 4. Hydrocortisone. 5. Preparation H 1% topically daily prn. 6. Lantus insulin 10 units subcutaneously at bedtime. 7. Lisinopril 20 mg p.o. daily. 8. Metformin 1,000 mg p.o. b.i.d. 9. Xarelto 20 mg p.o. daily. HOSPITAL COURSE: Ms. Briceno is an 87-year-old female with a past medical history of atrial fibrillation and insulin dependent diabetes who presented to the hospital on 12/08/2017 after being found down at home. Please see the dictated history and physical from Dr. Machado for complete details. In brief, the patient lived independently and was last seen out with her aides two days prior to admission. On the day of admission, the patient was found in her apartment on the floor covered in dry stool and bruises. The patient was nonverbal, but alert. In the emergency room, Ms. Briceno's labs showed a normal BUN and creatinine with a troponin of 0.39, a total creatinine kinase of 1424, and a white blood cell count of 21.7. Her vitals were stable except for a rapid afib with a heart rate of 147. She had multiple imaging studies due to being on the floor, including a chest x-ray which showed "no active cardiopulmonary disease noted;" a brain CT which showed "no acute intracranial findings;" a cervical spine CT which showed "advanced osteoarthritic findings as described, no acute cervical spine, right thyroid nodules;" and a thoracic spine x-ray which showed "there appears to be a compression fracture of the L1 vertebra, age of which is undetermined, diffuse osteopenia." Her troponin peaked on admission at 0.39 and her EKG did not show any evidence of ischemia. She did go on for a transthoracic echocardiogram which did not show any significant valvular abnormality or wall motion abnormality and had an estimated ejection fraction of 45 to 50%. With hydration, her total CK came down quickly and her creatinine remained normal. Ms. Briceno was seen in consultation by Dr. Luther from Neurology. He suspected that she may have had a cardioembolic CVA and recommended follow-up CT brain; however, this was again reviewed with Dr. Dawkins who followed up on the patient and the recommendation was if the patient could follow commands, that a brain MRI would be more helpful. The patient had the brain MRI on 2017 and this showed a subacute right inferior cerebellum nonhemorrhagic infarct. The case was discussed at length between Neurology, Hospital Medicine, and the patient's daughter regarding the possibility of anticoagulation. This time the patient's daughter would like to resume anticoagulation for A-fib given this new stroke and also the fact that the [facility]. During the hospitalization, Ms. Briceno was noted to have some swelling to her bilateral lower extremities, that was considered to have right greater than left. She had a venous Doppler study which showed no DVT. Ms. Briceno is doing quite well today. Her aphasia is improving daily. She has been seen by Speech Therapy and she has a mechanical ground texture diet with thin liquids. She is to continue PT, OT, and speech at [facility] for rehabilitation. DISPOSITION: To [facility]. DIET: Low salt. ACTIVITY: As tolerated. FOLLOW-UP PLANS: Please follow-up with the providers at [facility] and then with Dr. Saavedra at the time of discharge. Approximately 60 minutes were spent in the discharge of this patient, more than half that time was spent with the patient at the bedside reviewing the events leading up to and during this hospitalization, performing the physical examination, and reviewing my plan of care with the patient and her daughter. CELENA GARZA, ADVERTISING SALES REPRESENTATIVE [id number]/[facility] #: [id number] [facility] CENTERGallo
[2017-12-13] MEDS ORDERED: Rivaroxaban TAB(*) 20 MG TAB PO SCH (18:00)
== END 2017-12-13 12:27 | DRG 64 ==
LOC: ED 11:52 → MEDTELE 15:30
PROVIDERS: ADMIT Internal Medicine; ATTEND Internal Medicine
DX: I63.541 Cerebral infarction due to unspecified occlusion or stenosis of right cerebellar artery (principal); L89.153 Pressure ulcer of sacral region, stage 3; G93.41 Metabolic encephalopathy; M62.82 Rhabdomyolysis; N39.0 Urinary tract infection, site not specified; I24.8 Other forms of acute ischemic heart disease; R65.10 Systemic inflammatory response syndrome (SIRS) of non-infectious origin without acute organ dysfunction; R47.01 Aphasia; F03.90 Unspecified dementia, unspecified severity, without behavioral disturbance, psychotic disturbance, mood disturbance, and anxiety; I87.8 Other specified disorders of veins; E11.9 Type 2 diabetes mellitus without complications; Z66 Do not resuscitate; M85.88 Other specified disorders of bone density and structure, other site; M79.89 Other specified soft tissue disorders; M47.9 Spondylosis, unspecified; D72.829 Elevated white blood cell count, unspecified; R74.8 Abnormal levels of other serum enzymes; M51.35 Other intervertebral disc degeneration, thoracolumbar region; Z79.84 Long term (current) use of oral hypoglycemic drugs; Z79.1 Long term (current) use of non-steroidal anti-inflammatories (NSAID); Z79.82 Long term (current) use of aspirin; Z79.4 Long term (current) use of insulin; Z79.899 Other long term (current) drug therapy; Z88.8 Allergy status to other drugs, medicaments and biological substances; Z87.891 Personal history of nicotine dependence
CPT/HCPCS: 36415; 70450; 70551; 71045; 72070; 72125; 80048; 80053; 80061; 81003; 81015; 82140; 82550; 82803; 83605; 83735; 83930; 84484; 85025; 85610; 85730; 87040; 87086; 93005; 93306; 99284; A9270-GY; G8978-GP-CK; G8979-GP-CI; G8987-GO-CM; G8988-GO-CI; G8989-GO-CI; J0696; J3475

== ENCOUNTER 2017-12-31 18:38 | Emergency (ER) | payer MEDICARE, BC ==
[2017-12-31] MEDS ORDERED: Bupivacaine 0.25% SDV* 30 ML INJ ONE (19:41)
[2017-12-31] MEDS ORDERED: Cephalexin CAP* 500 MG PO ONE (21:16)
[2017-12-31 21:33] VITALS: BP 112/61
--- NOTE | 2017-12-31 21:41 | ED ---
Holland Goodwin Natalie, scribed for Alan Harmon MD on 12/31/17 at 1949 . Upper Extremity Pain - HPI Summary HPI Summary: The patient is an 87 y/o F presenting to the ED from [facility] c/o redness and swelling from right thumb up right arm. The pain is rated 3/10 in severity with occasional shooting pain to right shoulder. She had a stroke two weeks and was alone for two days afterwards. When she was in hospital, it was found that she had cuts on her thumb and first finger in the right hand, and feces were found on the floor of her apartment, so it is thought that she was handling it on her own and obtained the infection that way. - History of Current Complaint Chief Complaint: EDExtremityUpper Stated Complaint: POSS INFECTION Time Seen by Provider: 12/31/17 19:17 Hx Obtained From: Patient Mechanism Of Injury: Unknown - possible infection from cuts Onset/Duration: Started Days Ago, Still Present Timing: Constant Severity Initially: Moderate Severity Currently: Moderate Pain Location: Finger - right thumb Aggravating Factor(s): Nothing Alleviating Factor(s): Nothing Associated Signs & Symptoms: Positive: Swelling, Redness, Other - shoulder pain - Allergies/Home Medications Allergies/Adverse Reactions: Allergies Allergy/AdvReac Type Severity Reaction Status Date / Time heparin Allergy Severe See Comment Verified 12/08/17 13:47 Home Medications: Home Medications Diltiazem CD CAP* [Cardizem CD CAP*] 180 mg PO DAILY 12/31/17 [History Confirmed 12/31/17] Insulin GLARGINE(*) [Lantus(*)] 10 units SUBCUT BEDTIME 12/31/17 [History Confirmed 12/31/17] Pravastatin (NF) [Pravachol (NF)] 20 mg PO BEDTIME 12/31/17 [History Confirmed 12/31/17] Rivaroxaban TAB(*) [Xarelto 20 mg] 20 mg PO QPM 12/31/17 [History Confirmed 09/18] PMH/Surg Hx/FS Hx/Imm Hx Endocrine/Hematology History: Reports: Hx Diabetes Cardiovascular History: Reports: Hx Hypertension Denies: Hx Auto Implanted Cardiovert Defib, Hx Pacemaker/ICD Respiratory History: Denies: Hx Chronic Obstructive Pulmonary Disease (COPD) Sensory History: Reports: Hx Contacts or Glasses, Hx Hearing Aid Opthamlomology History: Reports: Hx Contacts or Glasses Psychiatric History: Denies: Hx Panic Disorder - Surgical History Surgery Procedure, Year, and Place: APPENDIX. RIGHT HIP. VEIN STRIPPING. LEFT FOOT 1ST AND 2ND TOE AMPUTATION Infectious Disease History: No Infectious Disease History: Denies: Traveled Outside the [place] in Last 30 Days - Family History Known Family History: Positive: Hypertension - Social History Alcohol Use: None Substance Use Type: Reports: None Smoking Status (MU): Never Smoked Tobacco Review of Systems Positive: Other - pain in right thumb radiating to right shoulder Positive: Other - redness and swelling in right thumb All Other Systems Reviewed And Are Negative: Yes Physical Exam - Summary Physical Exam Summary: Appearance: The patient is well-nourished in no acute distress and in no acute pain. Skin: The skin is warm and dry and skin color reflects adequate perfusion. Medial border of thumb paronychia with mild redness. HEENT: The head is normocephalic and atraumatic. The pupils are equal and reactive. The conjunctivae are clear and without drainage. Nares are patent and without drainage. Mouth reveals moist mucous membranes and the throat is without erythema and exudate. The external ears are intact. The ear canals are patent and without drainage. The tympanic membranes are intact. Neck: The neck is supple with full range of motion and non-tender. There are no carotid bruits. There is no neck vein distension. Respiratory: Chest is non-tender. Lungs are clear to auscultation and breath sounds are symmetrical and equal. Cardiovascular: Heart is regular rate and rhythm. There is no murmur or rub auscultated. There is no peripheral edema and pulses are symmetrical and equal. Abdomen: The abdomen is soft and non-tender. There are normal bowel sounds heard in all four quadrants and there is no organomegaly palpated. Musculoskeletal: There is no back tenderness noted. Extremities are non-tender with full range of motion. There is good capillary refill. There is no peripheral edema or calf tenderness elicited. Neurological: Patient is alert and oriented to person, place and time. The patient has symmetrical motor strength in all four extremities. Cranial nerves are grossly intact. Deep tendon reflexes are symmetrical and equal in all four extremities. Psychiatric: The patient has an appropriate affect and does not exhibit any anxiety or depression. Triage Information Reviewed: Yes Vital Signs On Initial Exam: Initial Vitals Temp Pulse Resp BP Pulse Ox 98.5 F 93 18 115/60 96 12/31/17 18:46 12/31/17 18:46 12/31/17 18:46 12/31/17 18:46 12/31/17 18:46 Vital Signs Reviewed: Yes Procedures - Incision and Drainage Right Finger Dorsal Site: Medial paronychia Anesthesia: Digital - 0.25% Bupivicaine Instrument(s): Scalpel Diagnostics - Vital Signs Vital Signs Temp Pulse Resp BP Pulse Ox 12/31/17 18:51 92 115/60 97 12/31/17 18:46 98.5 F 93 18 115/60 96 - Laboratory Lab Statement: Any lab studies that have been ordered have been reviewed, and results considered in the medical decision making process. Re-Evaluation - Re-Evaluation First Eval Re-Evaluation Time: 21:12 Change: Improved Comment: After completing drainage of the patient's finger, I discussed with her discharge home. Course/Dx - Course Course Of Treatment: Ms. Briceno was brought in by her daughter concerned with infection of her right thumb. A few weeks ago she had a stroke and was lying for quite a long period of time with stool that she had all over her hand. On exam she clearly had a large paronychia on her right thumb and a very small area on her right fifth finger. The paronychia was drained easily after digital block and a large amount of pus obtained which was sent to the lab. Because of the circumstances I will also start her on antibiotics. - Diagnoses Provider Diagnoses: Paronychia Discharge - Sign-Out/Discharge Documenting (check all that apply): Discharge/Admit/Transfer - Discharge Plan Condition: Stable Disposition: HOME Prescriptions: Cephalexin CAP* [Keflex CAP*] 500 mg PO QID #28 cap Patient Education Materials: Paronychia (ED) Referrals: Juan Carlos Saavedra MD [Primary Care Provider] - 3 Days Additional Instructions: Take medication as prescribed. Follow up with your primary care provider in 2-3 days. Return to the emergency department for any new or worsening symptoms. - Billing Disposition and Condition Condition: STABLE Disposition: HOME The documentation as recorded by the Holland beckman Natalie accurately reflects the service I personally performed and the decisions made by me, Alan Harmon MD.
--- NOTE | 2018-01-03 10:37 | ED ---
Progress - Progress Note Progress Note: Patient's preliminary skin wound culture reveals Enterococcus faecalis. Patient was started on Keflex. No change in treatment at this time. Pending final results. Negative for MRSA and staph aureus. Re-Evaluation - Re-Evaluation First Eval Re-Evaluation Time: 21:12 Change: Improved Comment: After completing drainage of the patient's finger, I discussed with her discharge home. Course/Dx - Course Course Of Treatment: Ms. Briceno was brought in by her daughter concerned with infection of her right thumb. A few weeks ago she had a stroke and was lying for quite a long period of time with stool that she had all over her hand. On exam she clearly had a large paronychia on her right thumb and a very small area on her right fifth finger. The paronychia was drained easily after digital block and a large amount of pus obtained which was sent to the lab. Because of the circumstances I will also start her on antibiotics. - Diagnoses Provider Diagnoses: Paronychia Discharge - Sign-Out/Discharge Documenting (check all that apply): Post-Discharge Follow Up - Discharge Plan Condition: Stable Disposition: HOME Prescriptions: Cephalexin CAP* [Keflex CAP*] 500 mg PO QID #28 cap Patient Education Materials: Paronychia (ED) Referrals: Juan Carlos Saavedra MD [Primary Care Provider] - 3 Days Additional Instructions: Take medication as prescribed. Follow up with your primary care provider in 2-3 days. Return to the emergency department for any new or worsening symptoms. - Billing Disposition and Condition Condition: STABLE Disposition: Home
--- NOTE | 2018-01-04 12:51 | ED ---
Progress - Progress Note Progress Note: Patient's preliminary skin wound culture reveals Enterococcus faecalis. Patient was started on Keflex. No change in treatment at this time. Pending final results. Negative for MRSA and staph aureus. UPDATE: pt's sens list does not state cephalosporins are efective against organism. It appears she had an I&D day of wound cx. Relayed message to Zulema Kay NP who murphy f/u w/ pt as she is a resident at [facility] - if wound improving, may not need change in anbx. Re-Evaluation - Re-Evaluation First Eval Re-Evaluation Time: 21:12 Change: Improved Comment: After completing drainage of the patient's finger, I discussed with her discharge home. Course/Dx - Course Course Of Treatment: Ms. Briceno was brought in by her daughter concerned with infection of her right thumb. A few weeks ago she had a stroke and was lying for quite a long period of time with stool that she had all over her hand. On exam she clearly had a large paronychia on her right thumb and a very small area on her right fifth finger. The paronychia was drained easily after digital block and a large amount of pus obtained which was sent to the lab. Because of the circumstances I will also start her on antibiotics. - Diagnoses Provider Diagnoses: Paronychia Discharge - Sign-Out/Discharge Documenting (check all that apply): Post-Discharge Follow Up - Discharge Plan Condition: Stable Disposition: HOME Prescriptions: Cephalexin CAP* [Keflex CAP*] 500 mg PO QID #28 cap Patient Education Materials: Paronychia (ED) Referrals: Juan Carlos Saavedra MD [Primary Care Provider] - 3 Days Additional Instructions: Take medication as prescribed. Follow up with your primary care provider in 2-3 days. Return to the emergency department for any new or worsening symptoms. - Billing Disposition and Condition Condition: STABLE Disposition: Home
== END 2017-12-31 21:36 | disposition home or self-care (01) ==
LOC: ED 18:38
DX: L03.011 Cellulitis of right finger (principal); I10 Essential (primary) hypertension; E11.9 Type 2 diabetes mellitus without complications; Z79.4 Long term (current) use of insulin; Z88.8 Allergy status to other drugs, medicaments and biological substances
CPT/HCPCS: 10060; 87070; 87076; 87077; 87185; 87186; 87205; 87640; 87641; 99283; A9270-GY

== ENCOUNTER 2020-10-28 16:22 | Inpatient (IN) ==
[2020-10-28] MEDS ORDERED: NS 0.9% 1000 ml BAG 1,000 ML IV ONE ×2 (16:58→19:38)
[2020-10-28 17:50] LABS: ABS Lymphocytes 1.3 10^3/ul (1.0-4.8); ABS Monocytes 0.6 10^3/ul (0-0.8); ABS Neutrophils 6.3 10^3/ul (1.5-7.7); Eosinophil % 0.1 %; Hematocrit 24 % (35-47); Hemoglobin 8.2 g/dL (12.0-16.0); Lymphocyte % 16.4 %; Mean Corpuscular HGB Conc 34 g/dL (31-36); Mean Corpuscular Hemoglobin 30 pg (27-31); Mean Corpuscular Volume 88 fL (80-97); Mean Platelet Volume 9.5 fL (7.4-10.4); Platelet Count 236 10^3/uL (150-450); Red Blood Count 2.77 10^6 /uL (3.70-4.87); Red Cell Distribution Width 17 % (10-15); White Blood Count 8.2 10^3/uL (3.5-10.8)
[2020-10-28 18:09] LABS: ALT 12 U/L (7-52); AST 15 U/L (13-39); Albumin 3.6 g/dL (3.2-5.2); Albumin/Globulin Ratio 1.3 (1-3); Alkaline Phosphatase 60 U/L (34-104); Anion Gap 7 mmol/L (2-11); BUN/Creatinine Ratio 33.8 (8-20); Blood Urea Nitrogen 22 mg/dL (6-24); CO2 Carbon Dioxide 26 mmol/L (22-32); Calcium 8.9 mg/dL (8.6-10.3); Chloride 102 mmol/L (101-111); EGFR African American 103.8 (>60); EGFR Non-African American 85.8 (>60); Globulin 2.7 g/dL (2-4); Glucose 185 mg/dL (70-100); Magnesium 1.6 mg/dL (1.9-2.7); Potassium 3.7 mmol/L (3.5-5.0); Sodium 135 mmol/L (135-145); Total Protein 6.3 g/dL (6.4-8.9)
[2020-10-28 18:13] LABS: Troponin I 0.12 ng/mL (<0.03)
[2020-10-28 18:52] LABS: TSH Ultra Thyroid Stim Horm 2.78 mcIU/mL (0.34-5.60)
[2020-10-28] MEDS ORDERED: Diltiazem IV push/loading dose 5 MG/ML 5 ML vial (25 mg) IV SLOW PU ONE (19:37)
[2020-10-28] MEDS ORDERED: Magnesium Sulfate IV 1GM/100ML 1 GM/100 ML BAG IV ONE (19:39)
[2020-10-28] MEDS ORDERED: Dextrose 50% Syringe 50 ml 25 GM/50 ML SYRINGE IV PUSH PRN (20:52)
[2020-10-28] MEDS ORDERED: Ondansetron 4 mg VIAL 2 MG/ML 2 ml VIAL IV PRN (20:52)
[2020-10-29 01:18] LABS: Troponin I 0.12 ng/mL (<0.03)
[2020-10-29] MEDS: Metoprolol Tartrate 5 mg VIAL 5 ml VIAL (1 mg/ml) IV PRN (01:23)
[2020-10-29] MEDS ORDERED: Morphine 2 MG/ML SYRINGE IV ONE (02:32)
[2020-10-29] MEDS: NS 0.9% 1000 ml BAG 1,000 ML IV SCH ×2 (07:06→20:28)
[2020-10-29 07:49] LABS: ABS Monocytes 0.5 10^3/ul (0-0.8); ABS Neutrophils 6.8 10^3/ul (1.5-7.7); Eosinophil % 0.2 %; Hematocrit 28 % (35-47); Hemoglobin 9.4 g/dL (12.0-16.0); Lymphocyte % 12.6 %; Mean Corpuscular HGB Conc 33 g/dL (31-36); Mean Corpuscular Hemoglobin 30 pg (27-31); Mean Corpuscular Volume 89 fL (80-97); Mean Platelet Volume 9.4 fL (7.4-10.4); Platelet Count 227 10^3/uL (150-450); Red Blood Count 3.17 10^6 /uL (3.70-4.87); Red Cell Distribution Width 16 % (10-15); White Blood Count 8.3 10^3/uL (3.5-10.8)
[2020-10-29 08:01] LABS: INR 1.29 (0.82-1.09)
[2020-10-29 08:16] LABS: Troponin I 0.09 ng/mL (<0.03)
[2020-10-29 08:23] LABS: BUN/Creatinine Ratio 26.8 (8-20); Calcium 8.1 mg/dL (8.6-10.3); EGFR African American 123.3 (>60); EGFR Non-African American 101.9 (>60); Potassium 3.6 mmol/L (3.5-5.0)
[2020-10-29 08:51] LABS: Magnesium 1.6 mg/dL (1.9-2.7)
[2020-10-29] MEDS ORDERED: Morphine 2 MG/ML SYRINGE IV PRN (10:54)
[2020-10-29] MEDS ORDERED: Haloperidol 5 mg/ml SDV IV/IM 5 MG/ML AMP IV SLOW PU PRN (13:31)
[2020-10-29] MEDS ORDERED: Haloperidol 5 mg/ml SDV IV/IM 5 MG/ML AMP ONE (13:33)
[2020-10-29] MEDS: Magnesium Sulfate IV 3 GM in NS 0.9% 100 ml BAG 100 ML IVPB ONE ×2 (13:46→14:07)
[2020-10-29] MEDS: Insulin GLARGINE 100 un/ml 10 ml VIAL SUBCUT SCH ×2 (19:39)
[2020-10-30 05:44] LABS: ABS Eosinophils 0.1 10^3/ul (0-0.6); ABS Lymphocytes 1.1 10^3/ul (1.0-4.8); ABS Monocytes 0.5 10^3/ul (0-0.8); ABS Neutrophils 6.1 10^3/ul (1.5-7.7); Eosinophil % 0.7 %; Hematocrit 28 % (35-47); Hemoglobin 9.4 g/dL (12.0-16.0); Lymphocyte % 14.1 %; Mean Corpuscular HGB Conc 34 g/dL (31-36); Mean Corpuscular Hemoglobin 30 pg (27-31); Mean Corpuscular Volume 89 fL (80-97); Mean Platelet Volume 9.5 fL (7.4-10.4); Platelet Count 250 10^3/uL (150-450); Red Blood Count 3.14 10^6 /uL (3.70-4.87); Red Cell Distribution Width 16 % (10-15); White Blood Count 7.7 10^3/uL (3.5-10.8)
[2020-10-30 05:53] LABS: INR 1.22 (0.82-1.09)
[2020-10-30 06:06] LABS: BUN/Creatinine Ratio 15.8 (8-20); Calcium 7.9 mg/dL (8.6-10.3); EGFR African American 120.8 (>60); EGFR Non-African American 99.9 (>60); Magnesium 1.9 mg/dL (1.9-2.7); Potassium 3.2 mmol/L (3.5-5.0)
[2020-10-30] MEDS: KCL 10 MEQ/50 ML IVPREMIX 10 MEQ/50 ML BAG IV SCH ×4 (08:29→16:36)
[2020-10-30] MEDS: Metoprolol Tartrate 5 mg VIAL 5 ml VIAL (1 mg/ml) IV PRN (09:37)
[2020-10-30] MEDS: NS 0.9% 1000 ml BAG 1,000 ML IV SCH (09:39)
[2020-10-30] MEDS ORDERED: Buffered Lidocaine 1% SYRIN 1 ml INTRADERM ONE (10:20)
[2020-10-30] MEDS ORDERED: ceFAZolin 2 GM PREMIX 2 GM/50 ML BAG ONE (12:12)
[2020-10-30] MEDS ORDERED: ROPIVACAINE 5 MG/ML 30 ML BTL (0.5%) ONE (13:35)
[2020-10-30] MEDS ORDERED: Dexamethasone IV 4 MG/ML VIAL 1 ml VIAL ONE (13:36)
[2020-10-30] MEDS ORDERED: fentaNYL 100 mcg/2 ml 50 MCG/ML VIAL ONE ×2 (14:13→16:49)
[2020-10-30] MEDS ORDERED: Ketamine HCL 50 mg/ml 10 ml VIAL (500 MG) ONE (14:14)
[2020-10-30] MEDS ORDERED: Rocuronium 50 mg VIAL 10 mg/ml 5 ml VIAL (50 mg) ONE (14:14)
[2020-10-30] MEDS ORDERED: Lidocaine 2% PF 5 ML VIAL ONE ×2 (15:13→16:42)
[2020-10-30] MEDS ORDERED: Etomidate 20 mg/10 ml 2 MG/ML 10 ml VIAL ONE (15:14)
[2020-10-30] MEDS ORDERED: Vancomycin 1,000 MG VIAL ONE (16:48)
[2020-10-30] MEDS ORDERED: Naloxone 0.4 mg VIAL 0.4 mg/ml 1 ml VIAL IV PRN (17:43)
[2020-10-30 19:41] LABS: Hematocrit 30 % (35-47); Hemoglobin 9.5 g/dL (12.0-16.0)
[2020-10-30] MEDS: Insulin GLARGINE 100 un/ml 10 ml VIAL SUBCUT SCH (20:19)
[2020-10-30] MEDS: ceFAZolin 1 GM X 3 DOSES POST-OP Q8H (AddVan) IVPB SCH (23:30)
[2020-10-31 06:01] LABS: ABS Lymphocytes 0.9 10^3/ul (1.0-4.8); ABS Monocytes 0.7 10^3/ul (0-0.8); ABS Neutrophils 8.2 10^3/ul (1.5-7.7); Hematocrit 28 % (35-47); Hemoglobin 9.3 g/dL (12.0-16.0); Lymphocyte % 9.5 %; Mean Corpuscular HGB Conc 34 g/dL (31-36); Mean Corpuscular Hemoglobin 30 pg (27-31); Mean Corpuscular Volume 89 fL (80-97); Mean Platelet Volume 9.2 fL (7.4-10.4); Nucleated Red Blood Cells % 0.1; Platelet Count 266 10^3/uL (150-450); Red Cell Distribution Width 16 % (10-15); White Blood Count 9.9 10^3/uL (3.5-10.8)
[2020-10-31 06:13] LABS: BUN/Creatinine Ratio 20.3 (8-20); Calcium 7.9 mg/dL (8.6-10.3); EGFR African American 116.1 (>60); Potassium 3.6 mmol/L (3.5-5.0)
[2020-10-31] MEDS: ceFAZolin 1 GM X 3 DOSES POST-OP Q8H (AddVan) IVPB SCH ×3 (06:30→15:25)
[2020-10-31 08:39] LABS: Albumin 2.8 g/dL (3.2-5.2); Albumin/Globulin Ratio 1.3 (1-3); Globulin 2.2 g/dL (2-4); Total Bilirubin 0.9 mg/dL (0.2-1.0)
[2020-10-31] MEDS ORDERED: Polyethylene Glycol 3350 17 GM PACKET PO PRN (15:06)
[2020-10-31] MEDS: Insulin GLARGINE 100 un/ml 10 ml VIAL SUBCUT SCH (21:23)
[2020-11-01 05:53] LABS: Hematocrit 25 % (35-47); Hemoglobin 8.5 g/dL (12.0-16.0); Mean Platelet Volume 8.6 fL (7.4-10.4); Platelet Count 273 10^3/uL (150-450)
[2020-11-01 06:15] LABS: BUN/Creatinine Ratio 24.6 (8-20); Calcium 7.7 mg/dL (8.6-10.3); EGFR African American 120.8 (>60); EGFR Non-African American 99.9 (>60); Potassium 3.4 mmol/L (3.5-5.0)
[2020-11-01] MEDS ORDERED: LORazepam 2 mg VIAL 1 ml IV PUSH PRN (09:53)
[2020-11-01] MEDS ORDERED: Morphine ORAL CONCENTRATE 5 MG/0.25 ML ORAL.SYRIN PO PRN (09:53)
[2020-11-01] MEDS ORDERED: Ondansetron ODT 4 mg TAB 4 MG TAB SL PRN (09:53)
[2020-11-01 11:24] VITALS: BP 112/43
[2020-11-02] MEDS: Morphine ORAL CONCENTRATE 5 MG/0.25 ML ORAL.SYRIN PO PRN (23:38)
[2020-11-03] MEDS: Morphine ORAL CONCENTRATE 5 MG/0.25 ML ORAL.SYRIN PO PRN (01:50)
[2020-11-03] MEDS ORDERED: Morphine ORAL CONCENTRATE 5 MG/0.25 ML ORAL.SYRIN PO PRN (02:03)
== END 2020-11-03 13:45 | DRG 481 ==
LOC: ED 16:22 → MED 20:45
PROVIDERS: ADMIT Internal Medicine; ATTEND Hospitalist